=== PATIENT | male | born 1975 | race Two or more races ===

== ENCOUNTER 2023-03-10 14:42 | Outpatient (REF) | payer OTHER, SELFPAY ==
[2023-03-10 18:37] LABS: Influenza A PCR NEGATIVE (Negative); Influenza B PCR NEGATIVE (Negative); Resp Syncy Virus RNA Qual PCR NEGATIVE (Negative); SARS COV2 PCR INHOUSE NEGATIVE (Negative)
== END 2023-03-10 14:43 | disposition home or self-care (01) ==
LOC: HO.CHCLNP 14:42
PROVIDERS: Visit Provider Internal Medicine
DX: Z11.52 Encounter for screening for COVID-19 (principal); Z20.822 Contact with and (suspected) exposure to COVID-19; R05.9 Cough, unspecified
CPT/HCPCS: 0241U

== ENCOUNTER 2024-02-29 14:25 | Outpatient (REF) | payer OTHER, SELFPAY ==
[2024-02-29 17:47] LABS: Basophils Absolute Auto 0.1 X10*3/uL (0.0-0.2); Basophils Percent Auto 0.7 % (0-2); Eosinophils Absolute Auto 0.1 X10*3/uL (0.0-0.4); Hematocrit 44.5 % (42.0-52.0); Hemoglobin 14.7 g/dl (14.0-18.0); Imm Gran Abs Auto 0.09 X10*3/uL (0.00-0.03); Imm Gran Pct Auto 0.7 % (0.0-0.4); Lymphocytes Absolute Auto 5.1 X10*3/uL (1.2-4.9); Lymphocytes Percent Auto 41.2 % (20-40); MANUAL DIFF FLAG SCAN; Mean Corpuscular Hemoglobin 28.4 pg (27.0-33.0); Mean Corpuscular Volume 86.1 fL (80.0-98.0); Mean Platelet Volume 9.7 fL (9.4-12.4); Monocytes Absolute Auto 0.9 X10*3/uL (0.1-1.2); Monocytes Percent Auto 7.1 % (2-11); Neutrophils Absolute Auto 6.1 x10*3/uL (2.0-8.3); Neutrophils Percent Auto 49.3 % (45-73); Platelet Count 245 X10*3/uL (160-400); Red Blood Count 5.17 X10*6/uL (4.60-5.80); Red Cell Distribution Width 15.8 % (11.0-16.0); SCAN SMEAR FLAG 1; White Blood Count 12.5 X10*3/uL (4.8-10.8)
[2024-02-29 18:07] LABS: Appearance Urine Clear; Color Urine Yellow; Glucose Urine UA Negative (Negative); Leukocyte Esterase Urine Negative (Negative); Nitrite Urine Negative (Negative); PH 5.5 (5.0-9.0); Specific Gravity - Urine 1.025 (1.005-1.025); Urine Blood Negative (Negative); Urine Ketones Negative (Negative); Urine Protein Negative (Neg-Trace)
[2024-02-29 18:08] LABS: SLIDE REVIEW VERIFIED
[2024-02-29 18:09] LABS: Bacteria Urine None Seen (None Seen); Hyaline Casts Urine 0-2 /LPF (0-2); RBC Urine 0-2 /HPF (0-2); Squamous Epithelial Cell Urine 0-2 /HPF (0-2); WBC Urine 0-5 /HPF (0-5)
[2024-02-29 18:18] LABS: Prostate Specific Antigen Scr 0.43 ng/mL (<0.05-4.0); TSH reflex Free T4 1.28 uIU/mL (0.32-4.0)
[2024-02-29 18:36] LABS: Alanine Aminotransferase 26 U/L (0-40); Albumin Level 4.5 g/dL (3.5-5.0); Alkaline Phosphatase 122 U/L (39-117); Anion Gap 14 (12-20); Aspartate Amino Transferase 17 U/L (5-37); Bilirubin Total 0.3 mg/dL (0.0-1.0); Blood Urea Nitrogen 14 mg/dL (9-16); Calcium 9.6 mg/dL (8.4-10.2); Carbon Dioxide 27 mmol/L (22-29); Chloride 106 mmol/L (96-108); Cholesterol 177 mg/dL (<200); Estimated Glomerular Filt Rate > 60; Glucose Random 58 mg/dL (60-115); HDL Cholesterol 53 mg/dL (>40); LDL Cholesterol Calculated 97 mg/dL (<100); Potassium 3.8 mmol/L (3.3-5.1); Sodium 143 mmol/L (135-145); Total Protein 7.4 g/dL (6.5-8.0); Triglycerides 138 mg/dL (<150)
== END 2024-02-29 14:26 | disposition home or self-care (01) ==
LOC: HO.CHCLDS 14:25
PROVIDERS: Visit Provider Internal Medicine
DX: Z00.00 Encounter for general adult medical examination without abnormal findings (principal); Z13.6 Encounter for screening for cardiovascular disorders; Z12.5 Encounter for screening for malignant neoplasm of prostate; R35.0 Frequency of micturition
CPT/HCPCS: 36415; 80053; 80061; 81001; 84153; 84443; 85025

== ENCOUNTER 2024-03-08 10:25 | Outpatient (REF) | payer OTHER, SELFPAY | END 2024-03-08 10:26 | disposition home or self-care (01) | LOC: HO.HMGCX 10:25 | PROVIDERS: PCP Internal Medicine; Visit Provider Internal Medicine | DX: R74.8 Abnormal levels of other serum enzymes (principal) | CPT/HCPCS: 76700 ==

== ENCOUNTER 2024-11-04 11:56 | Outpatient (REF) | payer OTHER, SELFPAY ==
--- NOTE | ~2024-11-04 | XR_ITS ---
EXAMINATION: XR HAND, RIGHT CLINICAL INFORMATION: Right hand pain after a fall last week COMPARISON: None available. TECHNIQUE: PA, lateral, and oblique views of the right hand. FINDINGS: No fracture or acute deformity is identified. There are no erosions or osteophytes. Scapholunate interval is at the upper limits of normal. XR/XR hand RT min 3V IMPRESSION: No acute bony abnormality. Electronically signed by: Lio Alfaro MD 11/04/2024 01:28 PM EDT
--- NOTE | ~2024-11-04 | XR_ITS ---
EXAMINATION: XR SHOULDER, RIGHT CLINICAL INFORMATION: Right shoulder pain after fall last week COMPARISON: None available. TECHNIQUE: AP external rotation, Grashey, scapular Y views of the right shoulder. FINDINGS: AC joint is intact. There is no dislocation. There are no degenerative changes. No fracture is evident. XR/XR shoulder RT min 2V IMPRESSION: Unremarkable right shoulder x-rays Electronically signed by: Lio Alfaro MD 11/04/2024 01:29 PM EDT
--- OUTSIDE RECORDS SUMMARY | 2024-11-04 13:33 | XMS_ITS ---
Author Name [facility] Organization Unknown History of Medication Use Medication Directions Dispensed Refills Start Date End Date Stat Pepcid 20 mg tablet Take 1 tablet twice a day by oral route as needed. 03/10/2023 active acetaminophen ER 650 mg tablet,extended release TAKE 1 TABLET BY MOUTH EVERY 8 HOURS NEEDED FOR PAIN FOR UP TO 30 DAYS. active albuterol sulfate HFA 90 mcg/actuation aerosol inhaler INHALE 2 PUFFS EVERY 4 (FOUR) HOURS IF NEEDED FOR WHEEZING OR SHORTNESS OF BREATH. active gabapentin 100 mg capsule TAKE 1 CAPSULE BY MOUTH AT BEDTIME FOR 30 DOSES. active gabapentin 300 mg capsule Take 1 capsule by oral route. active ibuprofen 800 mg tablet Take 1 tablet twice a day by oral route with meal(s). active nortriptyline 10 mg capsule TAKE 1 CAPSULE BY MOUTH EVERY DAY active pregabalin 25 mg capsule Take 1 capsule 3 times a day by oral route. active Problems Problem Status Onset Date Problem Type Date of Resoluti on Source Depressive disorder active 2024-04-[address] [facility] [facility] Anxiety active 2024-04-19 [facility] [facility] Rupture of ulnar collateral ligament of thumb active 2024-04-19 Problem[facility] Fibromyalgia active 2024-04-[address] [facility] Migraine active 2024-04-19 ProblemAct [facility] Complex regional pain syndrome type I of right upper limb active 2024-04-22 ProblemAct [facility] Encounters Encounter Type Encounter Reason Primary Diagnosis Location Date [facility] 05/17/2024 Care Team Organization Name Specialty Phone Email Start Date End [facility] 2024
== END 2024-11-04 11:57 | disposition home or self-care (01) ==
LOC: HO.HHCX 11:56
PROVIDERS: Visit Provider Internal Medicine Geriatric Medicine
DX: M79.641 Pain in right hand (principal); M25.511 Pain in right shoulder
CPT/HCPCS: 73030; 73130

== ENCOUNTER → 2024-11-04 11:57 | Outpatient (BNV) | payer OTHER, SELFPAY | PROVIDERS: Visit Provider Radiology Diagnostic Radiology | DX: M25.511 Pain in right shoulder (principal); M79.641 Pain in right hand | CPT/HCPCS: 73030; 73130 ==

== ENCOUNTER 2024-11-29 10:17 | Outpatient (REF) | payer OTHER, SELFPAY ==
--- OUTSIDE RECORDS SUMMARY | 2024-11-29 10:37 | XMS_ITS ---
Author Name [facility] Organization Unknown History of Medication Use Medication Directions Dispensed Refills Start Date End Date Stat us Pepcid 20 mg tablet Take 1 tablet [...] times a day by oral route. active Allergies Allergen Reaction Severity Comment Documented Date Source Statu s DOG DANDER [facility] Problems Problem Status Onset Date Problem Type [...] Encounter Reason Primary Diagnosis Location Date [facility] 05/17/2024 Care Team Organization Name Specialty Phone Email Start Date End [facility] 2024
--- OUTSIDE RECORDS SUMMARY | 2024-11-29 10:37 | XMS_ITS | Clinical Summary ---
Author Organization [facility] Address [address] [place] [phone] Phone Care Team Providers Care Center [facility] Name Role Phone Grupo Broderick MD Primary Care Provider [phone] Allergies Active Allergy Reactions Criticality Noted Date Comments Dog Epithelium Allergenic Extract 03/10/2023 Other reaction(s): HIVES Shellfish Derived 04/09/2023 Seafood Other Reaction(s): Hives/Urticaria Medications ibuprofen (ADVIL,MOTRIN) 800 mg tablet Take 1 tablet (800 mg total) by mouth 2 (two) times a day with meals. Active sertraline (ZOLOFT) 50 mg tablet Take 1 tablet (50 mg total) by mouth. 12/02/2021 Active pregabalin (LYRICA) 75 mg capsule Take 1 capsule (75 mg total) by mouth 2 (two) times a day. 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 [address] [phone] Juliette Miranda MD 10/01/[address] [facility] [address] [phone] Kym Sykes 09/27/2024 9:30 AM EDT Office Visit Orthopedic Surgery [facility] [address] [phone] Juliette Miranda MD Complex regional pain syndrome type 1 of right upper extremity (Primary Dx); Sprain of ulnar collateral ligament of metacarpophalangeal (MCP) joint of right thumb, sequela 09/23/[address] [facility] [address] [phone] Kym Sykes 09/17/[address] 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 Stroke (CMS/HCC V24, CMS/HCC V28) TIA over 10yrs ago Seizures ([facility]/HCC V24, [facility] V28) hx of due to nortryptinine small shaking of exeremities Joint pain Arthritis Social History Tobacco Use Types Packs/Day Years Used Date Smoking Tobacco: Some Days Smokeless Tobacco: Never Alcohol Use Standard Drinks/Week Comments Not Currently 0 (1 standard drink = 0.6 oz pur e alcohol) Sex and Gender Information Value Date Recorded Sex Assigned at Male 06/18/2024 9:46 AM EST Legal Sex Male 9:08 PM EST Gender Identity Male 06/18/2024 9:46 AM EST Sexual Orientation Straight 06/18/2024 9: 46 AM EST Obstetrics History Last Filed Vital Signs Vital Sign Reading Time Taken Comments Blood Pressure 120/94 09/27/2024 9:41 AM EDT Pulse 108 09/27/2024 9:41 AM EDT Temperature 36.9 C (98.5 F) 08/13/2024 8:20 AM EDT Respiratory Rate 18 08/13/2024 8:20 AM EDT Oxygen Saturation 98% 08/13/2024 8:20 AM EDT Inhaled Oxygen Concentration - - Weight 91.6 kg (202 lb) 09/27/2024 9:41 AM EDT Height 167.6 cm (5' 6 ) 09/27/2024 9:41 AM EDT Body Mass Index 32.6 09/27/2024 9:41 AM EDT Plan of Treatment Upcoming Encounters Date Type Department Care Team ([facility] st Contact Info) Description 12/10/2024 9:30 AM EDT Office Visit Orthopedic Surgery - [place] [address] [phone] Juliette Miranda MD [address] [phone] Health Maintenance Due Date Last Done Comments Hepatitis B Vaccines (1 of 3 - 19+ 3-dose series) 1996 DTaP,Tdap,and Td Vaccines (2 - Td or Tdap) 04/05/2016 04/05/2006 HIV Screening 2023 Hepatitis C Screening 2023 Social Influencers of Health Screening 2023 COVID-19 Vaccine (1 - 2023-2 5 season) 2024 Depression Screening 05/15/2024 Influenza Vaccine (#1) 2025 02/29/2024 Colorectal Cancer Screening: FIT-DNA (Cologuard) 03/08/2027 03/08/2024 Cholesterol Screening (Lipid Panel) 02/28/2029 02/29/2024 Pneumococcal Vaccine: Pediat rics (0 to 5 Years) and At-Risk Patients (6 to 49 Years) Completed 02/29/2024 HIB Vaccines Aged Out No longer eligi ble based on patient's age to complete this topic HPV Vaccines Aged Out No longer eligi ble based on patient's age to complete this topic Hepatitis A Vaccines Aged Out No long er eligible based on patient's age to complete this topic IPV Vaccines Aged Out No longer eligi ble based on patient's age to complete this topic MMR Vaccines Aged Out No longer eligi ble based on patient's age to complete this topic Meningococcal ACWY Vaccine Aged Out N o longer eligible based on patient's age to complete this topic Meningococcal B Vaccine Aged Out No l onger eligible based on patient's age to complete this topic RSV Immunization Patients Un kemar 20 months Aged Out No longer eligible b ased on patient's age to complete this topic Varicella Vaccines Aged Out No longer eligible based on patient's age to complete this topic Goals Goal Patient Goal Type Associated Problems Recent Progress Patient-Stated? 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 Patient demo decreased spasms/ twitching Patient reports and demo limited time to be able to hold/ functionally use a marker /pen Demo use of mouse and keyboard ( limited time) 06/25/2024 Patient has regressed after receiving 2 nerve blocks Reports increased pain and demo intermittent twitching right thumb during functional tasks of any kind integrating right hand pain General Worsening( 8:51 AM EST) No Gijzen, Haylie P, OTR/L Note: For patient to have less than 3 :10 pain in his right hand 2023 Goal not met. Patient continues to report intermittent sharp pains when using his right hand > 3:10 pain 06/25/2024 Patient continues with >3 : 10 pain limiting all functional use of his right hand ROM General Worsening( 8:49 AM EST) No Haylie Parikh, OTR/L Note: Patient will have full ROM in his right wrist ( ROM right wrist = ROM left wrist) PROM right wrist = PROM left wrist HOWEVER AROM right wrist EXT. 60 degrees/ Flex. 70 MS wrist 3-/5 05/20/2024 Increased wrist Extension 70 degrees. 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+/5 06/25/2024 Decreased AROM in right wrist EXT/ Flexion = 55 degrees strenght General Worsening( 8:45 AM EST) No Haylie Parikh P, OTR/L Note: Patient will have more than 35 lbs gross grasp in his right hand Patient will have increased 2 point affirmative action officer of 10 lbs, 3 jaw radha of 10 lbs, and lateral affirmative action officer of 10 lbs, 04/03/2024: grossgrasp = 25 lbs 2 point affirmative action officer= 3 lbs, 3 jaw radha = 4 lbs and lateral affirmative action officer =5 lbs 05/01/2024 grossgrasp= 28 lbs 2 point pinch = 4 lbs , 3 jaw radha= 4 lbs and lateral affirmative action officer = 5 lbs 05/20/2024 gross grasp =30 lbs. 2 point pinch= 4 lbs 3 jaw radha =5 lbs and lateral pinch =9 lbs 06/25/2024 gross grasp = 20 lbs 2 point pinch = 2 3 jaw radha = 1 lbs and lateral pinch =1 lbs <enter goal here> General Yes Haylie Parikh, OTR/L work re entry General Worsening( 8:42 AM EST) No Gijzen, Haylie P, OTR/L Note: Patient will be able to use a his right hand to draw on I pad ; for limited time . 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 Progressing; able to use thick handled brush for short periods of time 06/25/2024 Patient has been regressing after undergoing nerve blocks at pain clinic He has not been integrating his thumb during functional tasks ( keeps thumb against his index) 05/20/2024 Patient Slowly progressing; demo holding and using marker with right hand with interruptions ( 2nd to pain ) Procedures Procedure Name Priority Date/Time Associated Diagnosis Comments XR FINGERS 2+ VIEWS BILATERAL Routine 10/21/2024 2:26 PM EDT Post-operative state from Last 3 Months Results * XR Fingers 2+ Views bilat (10/21/2024 2:26 PM EDT) Anatomical Region Laterality Modality Upper Extremities, Fingers Bilateral Compu leigh Radiography Narrative 10/21/2024 5:25 PM EDT AP and lateral of both thumbs [id number] were obtained on 10/21/2024. There are no obvious fractures, lytic lesions, or unusual calcifications. On the lateral views the right thumb is flexed and the MP joint appears subluxed volarly with more uncovering of the metacarpal head along with volar displacement of the sesamoids. Both basal joints are intact on the lateral views. while it is the lateral image of the MP joint is slightly oblique the PIP joint which can indicate some rotation. There is an image from 08/16/2024 that show the right thumb and hand. There is similar volar displacement of the sesamoids as well as ulnar deviation and flexion of the MP joint. There is an image of the right thumb dated 04/09/2023 which showed the MP joint to be more congruent on the lateral view . Impression: Subtle volar subluxation of the MP joint of the right thumb relative to the left and relative to prior imaging from 2022. us Juliette Miranda MD IMG XR PROCEDURES Final Resul t from Last 3 Months Insurance GENERIC GENERIC GENERIC Care Teams Center [facility] Reamer Relationship Specialty Start Date End Date Grupo Broderick MD [address] [place] [id number] PCP - General Internal Medicine 08/12/24
--- OUTSIDE RECORDS SUMMARY | 2024-11-29 10:37 | XMS_ITS | Data Portability ---
Author Organization [place] - [employer] [id number] Address [address] [place] [address] Care Team Providers Care Rn Geriatric Name Role Phone MEG FORD Referring Provider RUBEN CURRIE Admission Liaison Assessment Encounter Date Assessment Date Assessment LastModified by Organization Details LastModified Time 04/22/2024 04/22/2024 - [facility] criteria: Symptoms: Sensory--+allo dynia Vasomotor--+te mperature changes in right hand Sudomotor/silvio a--+edema, +increased sweating Motor/Trophic- -+weakness/roth ited ROM Signs: Sensory--+allo dynia Vasomotor--+co lisandro changes in right hand Sudomotor/silvio a--+slight edema Motor/Trophic- -+weakness/roth ited ROM in right hand -at this point, patient does meet [place] criteria for CPRS of RUE -will plan to change gabapentin 300mg BID-->lyrica 25mg TID, as he reports some drowsiness with gabapentin and is unable to take it TID -will plan for right-sided stellate ganglion block to help with his CRPS symptoms, discussed repeating it up to 3x initially -recommended to continue PT/HEP -f/up in 1 month - 45 minutes was used for chart review, interviewing/e xamining, and counseling the patient during today's visit, and patient denies having any other further questions/conc erns [email or web address] Not available 04/22/2024 09:03:36 05/21/2024 05/21/2024 - Christ criteria: Symptoms: Sensory--+allo dynia Vasomotor--+te mperature changes in right hand Sudomotor/silvio a--+edema, +increased sweating Motor/Trophic- -+weakness/roth ited ROM Signs: Sensory--+allo dynia Vasomotor--+co lisandro changes in right hand Sudomotor/silvio a--+slight edema Motor/Trophic- -+weakness/roth ited ROM in right hand -at this point, patient does meet [place] criteria for CPRS of RUE -will plan to stop lyrica at this point, as he still reports being drowsy with the medication despite only taking 25mg during the day; of note, patient is currently taking sertraline for anxiety/depres charity, which is being prescribed to him by his PCP, advise patient to talk with his PCP to see if the sertraline can be switched to cymbalta as that would also have some neuropathic pain control qualities in addition to helping with anxiety/depres charity -will plan for repeat right-sided stellate ganglion block to help with his CRPS symptoms--the first one on 04/30/24 did help with his pain and ROM, however only lasted for a few days, the duration of which can be expected after only the first injection--dis cussed repeating it up to 3x initially -recommended to continue PT/HEP -f/up in 1 month - 25 minutes was used for chart review, interviewing/e xamining, and counseling the patient during today's visit, and patient denies having any other further questions/conc erns [email or web address] Not available 05/21/2024 13:03:47 09/17/2024 [facility]oms: Sensory--+allo dynia Vasomotor--+te mperature changes in right hand Sudomotor/silvio a--+edema, +increased sweating Motor/Trophic- -+weakness/roth ited ROM Signs: Sensory--+allo dynia Vasomotor--+co lisandro changes in right hand Sudomotor/silvio a--+slight edema Motor/Trophic- -+weakness/roth ited ROM in right hand -at this point, patient does meet [place] criteria for CPRS of RUE; however has gone through right-sided stellate ganglion block x3 with minimal improvement; have also tried multiple neuropathic medications (gabapentin, lyrica, nortriptyline) all causing some side effects or possibly interacting with his current medication regimen; had long discussion with patient that at this point, I unfortunately do not have anything else to offer in terms of further treatment for his CRPS -did advise patient to reach out to his case adjustor/nurse manager drug safety about getting another opinion from a pain management physician for further management/brian atment options -recommended to continue PT/HEP -f/up PRN -25 minutes was used for chart review, interviewing/e xamining, and counseling the patient during today's visit, and patient denies having any other further questions/conc erns Not available 09/17/2024 11:47:06 Plan of Treatment Reminders Order Date Submit Date Provider Last Modified By Organization Details Last Modified Time Details Appointments None recorded. Lab None recorded. Referral None recorded. Procedures None recorded. Surgeries None recorded. Imaging None recorded. Medication Orders Lyrica 25 mg capsule [id number] [facility]/Pharmacy #[id number], [address] [place], [address], 13:16:10 Lyrica 25 mg capsule ILA [facility]/Pharmacy #[id number], [address] [place], [address], 4 13:15:45 Patient TargetsNo targets recorded. Patient InstructionsNo instructions recorded. Reason for Referral None Reported. Results Created Date Observation Date Name Description Value Unit Range Abnormal Flag Note LastModifiedBy Organization Detail LastModifiedTime 04/30/20 24 04/30/2024 proce dures No observ ation record ed. [email or web address] [address], [address], 05/03/2024 16:13:57 06/04/19 25 06/04/2024 proce dures No observ ation record ed. [email or web address] [address], [address], 06/04/2024 10:55:26 Result Notes None recorded. Problems Name Problem SNOMED Code Status Onset Date Resolution Date Notes Provider Name and Address Organization Details Recorded Time Fibromyalgi a 499861886 Active 2023 Delia Blake [facility] 4 14:47:05 Migraine 52568001 Active 2023 Delia Blake [facility] 4 14:47:18 Anxiety 20371811 Active 2023 Delia Blake [facility] 4 14:47:24 Depressive disorder 26231851 Active 2023 Delia Blake [facility] 4 14:47:31 Rupture of ulnar collateral ligament of thumb 193633740 Active 2023 RT Delia Blake [facility] 4 14:48:04 Complex regional pain syndrome type I of right upper limb 9113287376273 03 Active 2023 Zane Harrington MD [facility] 4 08:58:17 Problem Notes None recorded. Procedures Surgical History Date Name Laterality Status Provider Name and Address Organization Details Recorded Time 11/29/19 24 ligament reconstruction completed Delia Blake [facility] 04/19/2024 15:03:23 Imaging Results None recorded. Procedure Notes None recorded. Medical Equipment None Reported. Allergies Allergen ID Allergen Name Allergen Category Reaction Reaction Severity Criticality Documentation Date Start Date Code Code System Note Provider Name and Address Organization Details Recorded Time 2145 Canis lupus familiari s extract environme nt Not available Not available Not available 04/19/2024 60463 4 [facility] 14:43[facility]13 2146 shellfish derived food,medi cation Not available Not available Not available 04/19/2024 95387 UNK Delia Blake [facility] 4 14:43:22 Medications Name Sig Start Date Stop Date Status Note LastModified by Organization Details LastModified Time cyclobenzapri ne 10 mg tablet TAKE 1 TABLET BY MOUTH 3 TIMES A DAY FOR 10 DAYS. active Not Available Not Available No t Available ibuprofen 800 mg tablet Take 1 tablet twice a day by oral route with meal(s). active Not Available Not Available No t Available prednisone 20 mg tablet TAKE 2 TABLETS BY MOUTH IN THE MORNING FOR 5 DAYS active Not Available Not Available N ot Available acetaminophen ER 650 mg tablet,extend ed release TAKE 1 TABLET BY MOUTH EVERY 8 HOURS NEEDED FOR PAIN FOR UP TO 30 DAYS. active Not Available Not Available No t Available nortriptyline 10 mg capsule TAKE 1 CAPSULE BY MOUTH EVERY DAY active Not Available Not Available No t Available gabapentin 300 mg capsule Take 1 capsule by oral route. active Not Available Not Available No t Available gabapentin 100 mg capsule TAKE 1 CAPSULE BY MOUTH AT BEDTIME FOR 30 DOSES. active Not Available Not Available No t Available ibuprofen 600 mg tablet TAKE 1 TABLET BY MOUTH 3 TIMES A DAY WITH MEALS MAX 2400 MG DAILY active Not Available Not Available No t Available Pepcid 20 mg tablet Take 1 tablet twice a day by oral route as needed. 2022 active Not Available Not Available Not Avai lable methylprednis olone 4 mg tablets in a dose pack TAKE 6 TABLETS ON DAY 1 DIRECTED ON PACKAGE AND DECREASE BY 1 TAB EACH DAY FOR A TOTAL OF 6 DAYS active Not Available Not Available No t Available albuterol sulfate HFA 90 mcg/actuation aerosol inhaler INHALE 2 PUFFS EVERY 4 (FOUR) HOURS IF NEEDED FOR WHEEZING OR SHORTNESS OF BREATH. active Not Available Not Available N ot Available amoxicillin 875 mg-potassium clavulanate 125 mg tablet TAKE 1 TABLET BY MOUTH TWICE A DAY active Not Available Not Available No t Available oxycodone 5 mg tablet TAKE 1 TO 2 TABLETS BY MOUTH EVERY 4 TO 6 HOURS NEEDED FOR SEVERE PAIN SCALE 7-10 active Not Available Not Available No t Available Pain Relief Extra Strength (acetaminophe n) 500 mg tablet TAKE 2 TABLETS BY MOUTH EVERY 8 HOURS NEEDED FOR MODERATE PAIN SCALE 4-6 active Not Available Not Available No t Available pregabalin 25 mg capsule Take 1 capsule 3 times a day by oral route. active Not Available Not Available No t Available Magdi Friend [facility] spacer USE 1 EACH EVERY 4 (FOUR) HOURS IF NEEDED (ASTHMA). active Not Available Not Available No t Available Vitals Date Recorded Body height Body mass index (BMI) Body weight Heart rate Oxygen saturation Oxygen saturation in Arterial blood by Pulse oximetry Body temperature Systolic And Diastolic Provider Name and Address Organization Details Last Updated DateTime 4 165.1 cm 30.8 kg/m2 46840.5 9 g 103 /min 93 % 93 % 98 [degF] 117/90 mm[Hg] Delia Blake [facility] 4 08:16:12 Social History None recorded. Functional Status None recorded. Mental Status None recorded. Family History Nothing Reported. Medical History Condition Response Diabetes N Allergies/Hayfever Y Anxiety Y Hernia N Head Trauma/Injury N Acid Reflux (GERD) N Migraines Y Depression Y Asthma N Substance Use N Back Injury N Heart Attack ([place]) N Ulcers N Hypertension N Past Encounters Encounter ID Performer Location Encounter Start Date Encounter Closed Date Diagnosis/Indication Diagnosis SNOMED-CT Code Diagnosis ICD10 Code Diagnosis Note [id number] Zane Harrington MD [id number] [address] [place] [address] 04/22/2024 08:09:57 04/22/2024 09:12:07 Complex regional pain syndrome type I of right upper limb 6869887644 84715 G90.511 [id number] Zane Harrington MD [id number] [facility] [address] [place] [address] 05/21/2024 07:45:15 05/21/2024 13:08:23 Complex regional pain syndrome type I of right upper limb 3858161485 77751 G90.511 [id number] Zane Harrington MD [id number] [facility] [address] [place] [address] 09/17/2024 07:59:14 09/17/2024 11:58:31 Complex regional pain syndrome type I of right upper limb 4912416312 42590 G90.511 Health Concerns Section Related Observation LastModified by Organization Detai ls LastModified Time None Recorded Concern Status LastModified by Organization Details LastModified Time None Recorded Advance Directives Directive None Recorded Payers Insurance Date Sequence Insurance Name Policy Number Policy Boyd Covered Member ID Boyd Member ID Guarantor Name 09/25/2024 [facility] [employer] Abiel Valentine Notes Date Note Type Note Provider Name and Address Organization Details Recorded Time 04/22/2024 text/html Abiel Valentine is a pleasant 48 year old male, who has h/o fibromyalgia who presents with right-sided hand/lower arm pain for ~5 months. He initially suffered a ruptured ulnar collateral ligament of his right thumb when he was at work opening a fire door, and subsequently underwent surgery for reconstruction of it on 11/13/2023, and has been dealing with pain in that area since then. The pain is constant and is described as sharp and burning in character. The current pain intensity is 8/10 at rest, increasing to 10/10 with activity. The pain increases with movement in his right hand, he is also experiencing significantly allodynia and hyperalgesia in that area. Pain is slightly better at rest. He also reports having decreased ROM in his right hand/arm, as well as noticing increased sweating in his right hand. He also reports noticing that his right hand is colder than his left. Denies any color changes in his right hand. Also notes some swelling in his right hand. Patient denies any radicular pain to the remainder of his RUE, he states that the pain ends at the level of his elbow. He does endorse numbness/tingling and weakness in his right lower arm/hand as well. He reports that performing activities of daily living is somewhat difficult, as he has learned to do a lot of activities using his left arm now. Patient has tried: at least 6 weeks of PT/HEP within the past 6 months Current pain medications: gabapentin 300mg BID--does make patient slightly drowsy when taking it TID Previous Medications and doses tried/effect: none Previous Nerve Block or Injection: none I personally reviewed prior radiological services. I also obtained relevant old records and reviewed lab data. Zane Harrington MD [facility], [place] [facility] 04/23/2024 09:17:08 05/21/2024 text/html Abiel Valentine is a pleasant 48 year old male, who has h/o fibromyalgia who presents with right-sided hand/lower arm pain for ~5 months. He initially suffered a ruptured ulnar collateral ligament of his right thumb when he was at work opening a fire door, and subsequently underwent surgery for reconstruction of it on 11/13/2023, and has been dealing with pain in that area since then. He also reports having decreased ROM in his right hand/arm, as well as noticing increased sweating in his right hand. He also reports noticing that his right hand is colder than his left. Denies any color changes in his right hand. Also notes some swelling in his right hand. Patient denies any radicular pain to the remainder of his RUE, he states that the pain ends at the level of his elbow. He does endorse numbness/tingling and weakness in his right lower arm/hand as well. He reports that performing activities of daily living is somewhat difficult, as he has learned to do a lot of activities using his left arm now. Patient has tried: at least 6 weeks of PT/HEP within the past 6 months Current pain medications: gabapentin 300mg BID--does make patient slightly drowsy when taking it TID Previous Medications and doses tried/effect: none Previous Nerve Block or Injection: right-sided stellate ganglion block (04/30/24): >50% relief for a few days I personally reviewed prior radiological services. I also obtained relevant old records and reviewed lab data. 05/21/24: Spoke with patient over telephone. He reports that he did get a few days of pain relief those are notable. However he does state that it only lasted for a few days and he was disappointed that it did not last for longer. Did advise patient that after the first injection that the pain relief may not last very long, which is why we would repeat a stellate ganglion block up to 3 times initially within a relatively short time interval. He does also report a coincidental migraine headache that started 4-5 days after the injection and went away a few days later. He reports taking the Lyrica during the day every day. He did find that he was getting drowsy during the day despite being on only 25 mg once daily. Advised patient that he should to stop taking the Lyrica at this point. Of note patient is on sertraline for anxiety/depression, which is prescribed by his primary care doctor. He reports that currently the pain in his right hand is back to baseline. He does find it that the range of motion in his right hand is improved from previously though. He also reports that with his increased range of motion that he is noticing more pain when he moves it more than he was previously. Zane Harrington MD [facility], [place] [facility] 05/21/2024 13:04:02 09/17/2024 text/html Abiel Valentine is a pleasant 49 year old male, who has h/o fibromyalgia who presents with right-sided hand/lower arm pain for ~5 months. He initially suffered a ruptured ulnar collateral ligament of his right thumb when he was at work opening a fire door, and subsequently underwent surgery for reconstruction of it on 11/13/2023, and has been dealing with pain in that area since then. He also reports having decreased ROM in his right hand/arm, as well as noticing increased sweating in his right hand. He also reports noticing that his right hand is colder than his left. Denies any color changes in his right hand. Also notes some swelling in his right hand. Patient denies any radicular pain to the remainder of his RUE, he states that the pain ends at the level of his elbow. He does endorse numbness/tingling and weakness in his right lower arm/hand as well. He reports that performing activities of daily living is somewhat difficult, as he has learned to do a lot of activities using his left arm now. Patient has tried: at least 6 weeks of PT/HEP within the past 6 months Current pain medications: gabapentin 300mg BID--does make patient slightly drowsy when taking it TID Previous Medications and doses tried/effect: gabapentin--drowsine ss, lyrica--drowsiness, nortriptyline--may be interacting with his sertraline (sweating, tachycardia) Previous Nerve Block or Injection: right-sided stellate ganglion block (04/30/24): >50% relief for a few daysright-sided stellate ganglion block (06/04/24): slight relief for a few daysright-sided stellate ganglion block (08/13/24): slight relief for a few days I personally reviewed prior radiological services. I also obtained relevant old records and reviewed lab data. 05/21/24: Spoke with patient over telephone. He reports that he did get a few days of pain relief those are notable. However he does state that it only lasted for a few days and he was disappointed that it did not last for longer. Did advise patient that after the first injection that the pain relief may not last very long, which is why we would repeat a stellate ganglion block up to 3 times initially within a relatively short time interval. He does also report a coincidental migraine headache that started 4-5 days after the injection and went away a few days later. He reports taking the Lyrica during the day every day. He did find that he was getting drowsy during the day despite being on only 25 mg once daily. Advised patient that he should to stop taking the Lyrica at this point. Of note patient is on sertraline for anxiety/depression, which is prescribed by his primary care doctor. He reports that currently the pain in his right hand is back to baseline. He does find it that the range of motion in his right hand is improved from previously though. He also reports that with his increased range of motion that he is noticing more pain when he moves it more than he was previously. 09/17/24: Spoke with patient over telephone. He reports getting a few days of slight improvement in his pain in his right thumb/hand after his most recent right-sided stellate ganglion block on 08/13/2024. Currently though he does report that the pain is back to his usual level. He does notice that it is also starting to affect his index finger. He did have an appointment with an independent phlebotomist medical lab assistant from his Worker's Comp case. I did speak with Tete (nurse case worker--[phone]), and Annita (adjustor--[phone]) regarding Mr. Valentine's situation. They did report that the independent phlebotomist medical lab assistant does not believe the patient has CRPS. Patient reports that his pain is a 9 out of 10. He continues to do his home exercises. He was started on nortriptyline approximately 1 month ago, however he does report that he has noticed some tachycardia based on readings from his watch. He has also noted that he sweats a lot easier now with activity. So I did advise the patient that he needs to stop taking the nortriptyline, and if his symptoms were to worsen he needs to go to the emergency department for immediate evaluation. Zane Harrington MD [facility] 09/17/2024 11:47:35
[2024-11-29 13:49] LABS: MANUAL DIFF FLAG NO
[2024-11-29 14:05] LABS: Hematocrit 43.1 % (42.0-52.0); Hemoglobin 14.1 g/dl (14.0-18.0); Imm Gran Abs Auto 0.08 X10*3/uL (0.00-0.03); Imm Gran Pct Auto 0.9 % (0.0-0.4); Lymphocytes Absolute Auto 3.5 X10*3/uL (1.2-4.9); Mean Corpuscular HGB Conc 32.7 g/dl (31.0-36.0); Mean Corpuscular Hemoglobin 28.4 pg (27.0-33.0); Mean Corpuscular Volume 86.9 fL (80.0-98.0); NRBC Abs Auto 0.000 X10*3/uL (0.0-0.012); NRBC Pct Auto 0.0 /100WBC (0.0-0.2); Platelet Count 243 X10*3/uL (160-400); Red Blood Count 4.96 X10*6/uL (4.60-5.80); White Blood Count 8.9 X10*3/uL (4.8-10.8)
[2024-11-29 14:23] LABS: Alanine Aminotransferase 27 U/L (0-40); Albumin Level 4.4 g/dL (3.5-5.0); Alkaline Phosphatase 138 U/L (39-117); Anion Gap 11 (12-20); Aspartate Amino Transferase 25 U/L (5-37); Blood Urea Nitrogen 13 mg/dL (9-16); Calcium 8.8 mg/dL (8.4-10.2); Carbon Dioxide 24 mmol/L (22-29); Chloride 110 mmol/L (96-108); Estimated Glomerular Filt Rate > 60; Potassium 4.1 mmol/L (3.3-5.1); Sodium 141 mmol/L (135-145); Total Protein 7.0 g/dL (6.5-8.0)
== END 2024-11-29 10:18 | disposition home or self-care (01) ==
LOC: HO.CHCLDS 10:17
PROVIDERS: Visit Provider Student in an Organized Health Care Education/Training Program
DX: R55 Syncope and collapse (principal); R00.2 Palpitations
CPT/HCPCS: 36415; 80053; 84443; 85025

== ENCOUNTER → 2024-12-19 12:49 | Outpatient (REF) | payer OTHER, SELFPAY ==
--- NOTE | 2024-12-19 12:53 | HM_ITS ---
* Total monitoring time 2 days. * Underlying rhythm is sinus with an average rate of 94/Min. About 35% of the time, rate > 100/Min. * Rare supraventricular ectopy. * Rare ventricular ectopy. * No significant pauses or high-grade AV blocks. * Patient marker associated with sinus rhythm. * Dizziness mentioned in diary but date not specified. MTDD
== END ==
LOC: HO.CARD 12:49
PROVIDERS: PCP Student in an Organized Health Care Education/Training Program; Visit Provider Student in an Organized Health Care Education/Training Program
DX: R00.2 Palpitations (principal); R55 Syncope and collapse
CPT/HCPCS: 93225

== ENCOUNTER → 2024-12-19 12:53 | Outpatient (BNV) | payer OTHER, SELFPAY | PROVIDERS: PCP Student in an Organized Health Care Education/Training Program; Visit Provider Internal Medicine | DX: I49.49 Other premature depolarization (principal); I49.3 Ventricular premature depolarization | CPT/HCPCS: 93227 ==

== ENCOUNTER 2025-01-22 07:56 | Outpatient (AMB) | payer OTHER, SELFPAY ==
--- NOTE | 2025-01-22 07:59 | MHC.OFFVIS ---
Vital Signs 01/22/25 08:02 Height 5 ft 6 in Weight 200 lb BMI 32.3 BP 130/88 Blood Pressure Location Rt brachial Position Sitting Respiration 16 Pulse 78 Pulse Oximetry (%) 97 Intake Visit Reasons: ENP: Syncope, unspecified syncope type, Encounter to establish care Allergies SEAFOOD Allergy (Unknown, Uncoded 01/22/25 08:01) UNKNOWN seafood and shellfish Adverse Reaction (Severe, Uncoded 01/22/25 08:01) hives, SOB, facial swelling HPI Comments Details: The patient is a 49-year-old male presenting with syncope. The episodes began after starting nortriptyline for pain management, with symptoms including vision changes, hearing loss, and loss of consciousness followed by tremulousness upon regaining consciousness. He also notes a bilateral headache described as a pressure sensation and accompanied by dizziness, light sensitivity, and nausea. He also feels very fatigued and brain fogged. Despite discontinuing nortriptyline, the symptoms have persisted and worsened over time. These episodes are occurring most commonly in the morning time. The patient also reports a history of chronic migraines, which are distinct from the headaches experienced after syncope episodes. The migraines are typically one-sided and sometimes accompanied by auras. The patient has a past medical history of viral meningitis in the , which required hospitalization and quarantine. Sinus tachycardia was identified through an EKG, with the patient experiencing a consistently elevated heart rate. He denies history of , stroke, or brain bleeds. He does have a history of previously low blood glucose levels. During episodes he denies loss of bladder, unilateral shaking or abnormal movements. He does not awaken confused or combative. He denies chest pain during episodes but has some related chest palpitations. Sleep: Does not sleep well. Sleeps 5-6 hours per night. Caffine: 2 cups coffee per day Tobacco: Smokes cigars once daily ETOH: Rare Substance use: Marijuana 1-2 grams per day [facility] Medical History (Updated 01/22/25 @ 09:07 by Zoila Low CNP) Syncope Review of Systems Const Details: Neurological: Reports syncope, vision changes, hearing loss, tremulousness, and chronic migraines. Denies hallucinations. - Cardiovascular: Reports palpitations. Denies chest pain. - Musculoskeletal: Reports chronic regional pain syndrome in the right wrist. - General: Reports weight gain since surgery. Physical Exam Vital Signs: Last Vital Signs Pulse 78 01/22/25 08:02 Resp 16 01/22/25 08:02 BP 130/88 01/22/25 08:02 Pulse Ox 97 01/22/25 08:02 BMI result Body Mass Index 32.3 Const General: cooperative, healthy appearing, comfortable and no acute distress Nutritional Appearance: well nourished Orientation/consciousness: patient oriented x3 Limitations: no limitations HEENT Head: Yes normal to inspection and Yes normocephalic Eyes General: appearance normal, both eyes and all related structures Visual Brown: normal visual brown by confrontation Alignment and Position: alignment normal Periorbital: periorbital findings normal Eyelids: Yes eyelids normal Conjunctivae: conjunctivae normal Sclerae: sclerae normal Direct Ophthalmoscopy: normal light reflex, no papilledema and fundi normal bilaterally Neck Neck: Yes normal visual inspection and Yes full ROM General: Yes no CVA tenderness Back/Spine/Pelvis Back: no CVA tenderness Cervical Spine: normal cervical lordosis Thoracic/Lumbar Spine: thoracic and lumbar spine normal to inspection Neuro General: patient oriented x3, tone normal and deep tendon reflexes 2+ bilaterally (Right wrist deferred d/t pain ) Cranial nerves: Yes CN's II-XII intact bilaterally and Yes Facial sensation intact/muscles of mastication intact Cognition (Neuro): normal cognition Gait exam (Neuro): Normal gait present Motor exam (neuro): 5/5 motor strength present throughout and Tremors during motor activity present (R>L upper extremity mild action tremor) bilateral upper extremity other (with activity ) Sensory Exam: double simultaneous stimulation for sensation normal Romberg Test: Negative Pupils: Normal pupillary reactivity/response: bilateral Psych Appearance: grossly normal Mental Status: mental status grossly normal Speech and movement: Normal speech and movement present and Clear speech present Affect: normal affect Attitude: cooperative Thought process: Normal thought process present Thought content: Normal thought content present Insight: Good insight present (Psych) Judgement: Good judgement present (Psych) Assessment & Plan Assessment & Plan (1) Encounter to establish care: Code(s): Z76.89 - Persons encountering health services in other specified circumstances (2) Loss of consciousness: Code(s): R40.20 - Unspecified coma Category: Medical (3) Shaking: Code(s): R25.1 - Tremor, unspecified Category: Medical (4) Tremor: Code(s): R25.1 - Tremor, unspecified Category: Medical (5) Migraine with aura and without status migrainosus, not intractable: Code(s): G43.109 - Migraine with aura, not intractable, without status migrainosus Category: Medical Plan The plan includes obtaining an EEG to evaluate for potential seizure activity, given the episodes of syncope with loss of awareness. Additionally, a brain MRI is recommended to rule out any structural changes contributing to the syncope. We discussed that this may be related to migraine. Alternatively there may be a psychogenic component. He does have an upcoming appointment with cardiology and we may consider referral to endocrinology to r/o fluctuations in BG levels that could be contributing. His TSH was normal. -MRI brain with and without contrast -EEG awake and asleep -Follow-up in 2 months -Keep cardiology appointment -Future considerations include referral to endocrinology Orders: Orders EEG awake and asleep Today R25.1 - Tremor, unspecified, R40.20 - Unspecified coma MR head/brain wo/w con Today R25.1 - Tremor, unspecified, R40.20 - Unspecified coma Coding Level of Care Code New Pt Level 4 (63419) Diagnoses Encounter to establish care Z76.89 Loss of consciousness R40.20 Shaking R25.1 Migraine with aura and without status migrainosus, not intractable G43.109
[2025-01-22 08:02] VITALS: BP 130/88; PULSE 78; RESP 16; O2SAT 97; BMI 32.3
--- OUTSIDE RECORDS SUMMARY | 2025-01-22 08:10 | XMS_ITS | Clinical Summary ---
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) 11/27/2024 Telephone Orthopedic Surgery [facility] [address] [facility] [address] [place] [address] Kym Sykes from Last 3 Months Surgical [...] of Chronic pain disorder 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, 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 Stroke (CMS/[facility] V24, CMS/[facility] V28) TIA over 10yrs ago Seizures (CMS/[facility] V24, CMS/[facility] V28) hx of due to nortryptinine small [...] Upcoming Encounters Date Type Department Care Team ([facility] st Contact Info) Description 01/28/2025 9:30 AM EDT Office Visit Orthopedic Surgery - [place] [address] [facility] [address] [place] [address] Juliette Miranda MD [address] [facility] [address] [place] [id number] Health Maintenance Due Date Last Done Comments Hepatitis B Vaccines (1 of 3 - 19+ 3-dose series) 1996 DTaP,Tdap,and Td Vaccines (2 - Td or Tdap) 04/05/2016 04/05/2006 HIV Screening 2023 Hepatitis C Screening 2023 Social Influencers of Health Screening 2023 Depression Screening 05/15/2024 COVID-19 Vaccine (1 - 2023-2 5 season) 2025 Influenza Vaccine (#1) 2025 02/29/2024 Colorectal Cancer [...] pain General Worsening( 8:51 AM EST) No Haylie Parikh P, OTR/L Note: For patient to have less than 3 :10 pain in his right hand 2023 Goal not met. Patient continues to report intermittent sharp pains when using his right hand > 3:10 pain 06/25/2024 Patient continues with >3 : 10 pain limiting all functional use of his right hand ROM General Worsening( 8:49 AM EST) No Haylie Parikh P, OTR/L Note: Patient will have full ROM in his right wrist ( ROM right wrist = ROM left wrist) PROM right wrist = PROM left wrist HOWEVER AROM right wrist EXT. 60 degrees/ Flex. 70 MS wrist 3-/5 05/20/2024 Increased wrist Extension 70 degrees. Wrist Ext left = wrist EXT right Case Picker strength wrist 3+/5 06/25/2024 Decreased AROM in right wrist EXT/ Flexion = 55 degrees strenght General Worsening( 8:45 AM EST) No Haylie Parikh P, OTR/L Note: Patient will have more than 35 lbs gross grasp in his right hand Patient will have increased 2 point lean six sigma senior specialist of 10 lbs, 3 jaw radha of 10 lbs, and lateral lean six sigma senior specialist of 10 lbs, 04/03/2024: grossgrasp = 25 lbs 2 point lean six sigma senior specialist= 3 lbs, 3 jaw radha = 4 lbs and lateral lean [employer] sigma senior specialist =5 lbs 05/01/2024 grossgrasp= 28 lbs 2 point pinch = 4 lbs , 3 jaw radha= 4 lbs and lateral lean six sigma senior specialist = 5 lbs 05/20/2024 gross grasp =30 lbs. 2 point pinch= 4 lbs 3 jaw radha =5 lbs and lateral pinch =9 lbs 06/25/2024 gross grasp = 20 lbs 2 point pinch = 2 3 jaw radha = 1 lbs and lateral pinch =1 lbs <enter goal here> General Yes Haylie Parikh, OTR/L work re entry General Worsening( 8:42 AM EST) No Haylie Parikh, OTR/L Note: Patient will be able to use a his right hand to draw on I pad ; for limited time . 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 and painter sign maintenance's tools Progressing; able to use thick handled brush for short periods of time 06/25/2024 Patient has been regressing after undergoing nerve blocks at pain clinic He has not been integrating his thumb during functional tasks ( keeps thumb against his index) 05/20/2024 Patient Slowly progressing; demo holding and using marker with right hand with interruptions ( 2nd to pain ) Insurance GENERIC GENERIC GENERIC Care Teams Ticket Collector Or Usher Relationship Specialty Start Date End Date Grupo Broderick MD [address] [place] [id number] PCP - General Internal Medicine 08/12/24
--- OUTSIDE RECORDS SUMMARY | 2025-01-22 08:12 | XMS_ITS | Encounter Summary ---
Author Organization [employer] Address [address] [facility] [address] [place] [address] Care Team Providers Care Restoration Technician Name Role Phone Grupo Broderick MD Primary Care Provider [phone] Encounter Details Date Type Department Care Team ([facility] Contact Info) Description 10/22/2024 Orders Only [facility] [address] [place] [address] ProviderDina MD Social History Tobacco Use Types Packs/Day Years Used Date Smoking Tobacco: Every Day Cigars Smokeless Tobacco: Never Depression Answer Date Recorded Patient Health Questionnaire-9 Score 19 06/25/2024 Patient Health Questionnaire-9 Score 19 06/25/2024 Last PHQ-9: Questionnaire Data Not on file 0 06/25/2024 Housing Stability Answer Date Recorded What is your housing situation today? I have rosalee benitez 06/25/[address] you li ve. Do you have problems with any of the following? None of the above 06/25/2024 Food Insecurity Answer Date Recorded Within the past 12 months, y ou worried that your food would run out before you got money to buy more: Never True 2024 Within the past 12 months,th e food you bought just didn't last and you didn't have enough money to get more: Sometimes True 06/25/2024 Transportation Answer Date Recorded In the past 12 months, has l ack of transportation kept you from medical appts, meetings, work or from getting things needed for daily living? No 06/25/2024 Utilities Answer Date Recorded In the past 12 months, has t he electric, gas, oil or water company threatened to shut off services in your home? No 06/25/2024 Depression Answer Date Recorded Patient Health Questionnaire-2 Score 5 06/25/2024 Internet Access Answer Date Recorded Internet Access Q1 Yes 06/25/2024 Internet Access Q2 Not on file 06/25/2024 Sex and Gender Information Value Date Recorded Sex Assigned at Male 03/14/2022 10:19 AM EDT Legal Sex Male 10:19 AM EDT Gender Identity Male 03/14/2022 10:19 AM EDT Sexual Orientation Straight 03/14/2022 10 :19 AM EDT documented as of this encounter Plan of Treatment Not on file documented as of this encounter Procedures Procedure Name Priority Date/Time Associated Diagnosis Comments XR FINGERS 2+ VIEWS BILATERAL Routine 10/21/2024 4:14 PM EDT documented in this encounter Results * XR Fingers 2+ Views Bilateral (10/21/2024 4:14 PM EDT) Anatomical Region Laterality Modality Upper Extremities, Fingers Bilateral [facility] us Historical Provider MD RUIZ XR PROCEDURES Final R esult documented in this encounter Visit Diagnoses Not on filedocumented in this encounter Additional Health Concerns Assessment Noted Time PHQ-9 Depression Total Score: 19 025 11:28 AM EST documented as of this encounter Care Teams Restoration Technician Relationship Specialty Start Date End Date Grupo Broderick MD [address] [place] [id number] PCP - General Internal Medicine 05/15/18 documented as of this encounter
--- OUTSIDE RECORDS SUMMARY | 2025-01-22 08:12 | XMS_ITS | Encounter Summary ---
Author Organization [employer] Address [address] [facility] [address], [place] [address] Care Team Providers Care Senior Writer Name Role Phone Grupo Broderick MD Primary Care Provider [phone] Encounter Details Date Type Department Care Team (Late st Contact Info) Description 05/02/2022 Abstract [facility] [address] [place] [address] Aleisha Zapata, DDS [address] [place] [address] Social History Tobacco Use Types Packs/Day Years Used Date Smoking Tobacco: Never Assessed Sex and Gender Information Value Date Recorded Sex Assigned at Male 03/14/2022 10:19 AM EDT Legal Sex Male 10:19 AM EDT Gender Identity Male 03/14/2022 10:19 AM EDT Sexual Orientation Straight 03/14/2022 10 :19 AM EDT documented as of this encounter Plan of Treatment Not on file documented as of this encounter Visit Diagnoses Not on filedocumented in this encounter Care Teams Senior Writer Relationship Specialty Start Date End Date Grupo Broderick MD [address] [place] [address] PCP - General Internal Medicine 05/15/18 documented as of this encounter
--- OUTSIDE RECORDS SUMMARY | 2025-01-22 08:12 | XMS_ITS | Clinical Summary ---
Author Organization [employer] Address [address] [facility] [address] [place] [address] Care Team Providers Care Railroad Surveyor Name Role Phone Grupo Broderick MD Primary Care Provider [phone] Allergies Active Allergy Reactions Criticality Noted Date Comments Dog Epithelium 03/10/2023 Other reaction(s): HIVES Shellfish Allergy 03/10/2023 Other reaction(s): ANAPHYLAXIS ANAPHYLAXIS Medications * This document contains information received from the source organization and may not represent a complete record from that organization. pregabalin (Lyrica) 75 MG capsule Take 75 mg by mouth 2 times daily. Active sertraline (Zoloft) 50 MG tablet Take 50 mg by mouth. 12/02/2021 Active nabumetone (Relafen) 500 MG tablet Take 1 tablet (500 mg) by mouth if needed in the morning and at bedtime for mild pain or moderate pain. 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 03/10/2023 Headache disorder 03/10/2023 03/10/2023 Mixed anxiety and depressive disorder 03/10/2023 03/10/2023 Encounters Date Type Department Care Team Description 01/06/2025 Telephone [facility] [address] [place] [address] Grupo Broderick MD Durable Medical Equipment 01/02/2025 3:15 PM EDT Office Visit [facility] [address] [place] [address] Grupo Broderick MD Syncope, unspecified syncope type (Primary Dx); LOC (loss of consciousness) ([facility]); Venous insufficiency 01/02/2025 Travel 01/01/2025 Travel 01/01/2025 Telephone [facility] [address] [place] [address] Grupo Broderick MD Chart Prep 11/29/2024 9:40 AM EDT Office Visit [facility] [address] [place] [address] Kellen Mireles MD Palpitations (Primary Dx); Syncope, unspecified syncope type 11/29/2024 Travel 11/28/2024 Telephone [facility] [address] [place] [address] Grupo Broderick MD Referral 11/04/2024 11:20 AM EDT Office Visit [facility] [address] [place] [phone] Hong Quan MD Syncope and collapse (Primary Dx); Acute pain of right shoulder; Right hand pain 11/04/2024 Travel 11/04/2024 Telephone [facility] [address] [place] [address] Grupo Broderick MD Nurse Triage 10/22/2024 Orders Only [facility] [address] [place] [address] Provider, MD Dina from Last 3 Months Immunizations Immunization Administration Dates Next Due Influenza, seasonal, injectable, preservative fr ee 02/29/2024 Pneumococcal Conjugate PCV 20 02/29/2024 TD (adult), 2 Lf tetanus tox oid, preservative free, adsorbed 04/05/2006 Family History Medical History Relation Name Comments Prostate cancer Father Kidney disease Mother Relation Name Status Comments Father Mother Social History Tobacco Use Types Packs/Day Years Used Date Smoking Tobacco: Every Day Cigars Smokeless Tobacco: Never Tobacco Cessation:Ready to Q uit: Not Asked; Counseling Given: Not Answered Depression Answer Date Recorded Patient Health Questionnaire-9 Score 06/25/2024 Patient Health Questionnaire-9 Score 06/25/2024 Last PHQ-9: Questionnaire Data Not on [...] Orientation Straight 03/14/2022 10 :19 AM EDT Last Filed Vital Signs Vital Sign Reading Time Taken Comments Blood Pressure 128/86 01/02/2025 3:17 PM EDT Pulse 117 01/02/2025 3:17 PM EDT Temperature 36.5 C (97.7 F) 01/02/2025 3:17 PM EDT Respiratory Rate 20 01/02/2025 3:17 PM EDT Oxygen Saturation 95% 01/02/2025 3:17 PM EDT Inhaled Oxygen Concentration - - Weight 89.8 kg (198 lb) 01/02/2025 3:17 PM EDT Height 154.3 cm (5' 0.75 ) 11/29/2024 9:43 AM ED T Body Mass Index 37.72 11/29/2024 9:43 AM EDT Plan of Treatment Health Maintenance Due Date Last Done Comments CT Colonography 1977 Colonoscopy 1977 Dental Prophylaxis 1977 FIT 1975 HIV Screening 1975 Sigmoidoscopy 1977 Family Planning (PISQ) 1992 Hepatitis C Screening 1995 Hepatitis B Vaccines (1 of 3 - 19+ 3-dose series) 1996 DTaP/Tdap/Td Vaccines (1 - Tdap) 04/06/2006 04/05/2006 Dental Oral Exam 10/03/2022 04/04/2022 Dental X-Ray: Bitewings 04/05/2023 04/04/20, 03/23/2022 Depression Monitoring 12/23/2024 06/25/2024 , 06/25/2024 COVID-19 Vaccine (1 - 2023-2 5 season) 2025 Influenza Vaccine (#1) 2025 02/29/2024 FOBT 03/08/2025 03/08/2024 Dental X-Ray: Full Mouth 04/05/2025 04/04/2022 Alcohol/Substance Use Screening 06/25/2025 06/25/2024 SDOH Screening 06/25/2025 06/25/2024 Disability Screening 11/29/2025 11/29/2024 Tobacco Screening 11/29/2025 11/29/2024 Colorectal Cancer Screening 03/08/2027 FIT DNA/Cologuard 03/08/2027 03/08/2024 Zoster Vaccines (1 of 2) 2027 Lipid Panel 02/28/2029 02/29/2024, 03/19/2020 RSV Patients and Patients Aged 60 years or older (1 - 1-dose 75+ series) 2052 Pneumococcal Vaccine: Pediatrics (0 to 5 Years) and At-Risk Patients (6 to 49) Years Completed 02/29/2024 HIB Vaccines Aged Out No [...] patient's age to complete this topic Meningococcal Vaccine Aged Out No dominique cheryl eligible based on patient's age to complete this topic RSV under 20 months Aged Out No longe r eligible based on patient's age to complete this topic Rotavirus Vaccines Aged Out No longer eligible based on patient's age to complete this topic Procedures Procedure Name Priority Date/Time Associated Diagnosis Comments CBC WITH AUTO DIFFERENTIAL Routine 11/29/2024 10:19 AM EDT Palpitations COMPREHENSIVE METABOLIC PANEL Routine 11/29/2024 10:14 AM EDT Syncope, unspecified syncope type TSH W/REFLEX TO FT4 Routine 11/29/2024 1 0:14 AM EDT Palpitations ECG 12-LEAD Routine 11/04/2024 11:47 AM EDT Syncope and collapse XR HAND 3+ VIEWS RIGHT Routine 11:29 AM EDT Right hand pain XR SHOULDER 2+ VIEWS RIGHT Routine 11/04/2024 11:16 AM EDT Acute pain of right shoulder LAB COLOGUARD COLON CANCER SCREEN Routine 03/08/2024 9:30 AM EDT Screening for colon cancer LIPID PANEL, STANDARD Routine 02/29/2024 2:27 PM EDT Annual physical exam INTRAORAL - COMPLETE SERIES OF RADIOGRAPHIC IMAGES Routine 04/04/2022 12:00 AM EST COMPREHENSIVE ORAL EVALUATION - NEW OR ESTABLISHED PATIENT Routine 04/04/2022 12:00 AM EST from Last 3 Months or Most Recently Relevant to Health Maintenance Results * (ABNORMAL) CBC auto differential (11/29/2024 10:19 AM EDT) White Blood Count 8.9 4.8 - 10.8 X10*3/uL [facility] Red Blood Count 4.96 4.60 - 5.80 X10*6/uL [facility] Hemoglobin 14.1 14.0 - 18.0 g/dl [facility] Hematocrit 43.1 42.0 - 52.0 % [facility] Mean Corpuscular Volume 86.9 80.0 - 98.0 fL [facility] Mean Corpuscular Hemoglobin 28.4 27.0 - 33.0 pg [facility] Mean Corpuscular HGB Conc 32.7 31.0 - 36.0 g/dl [facility] Red Cell Distribution Width 15.9 11.0 - 16.0 % [facility] Platelet Count 243 160 - 400 X10*3/uL [facility] Mean Platelet Volume 10.3 9.4 - 12.4 fL [facility] Neutrophils Percent Auto 50.2 45 - 73 % [facility] Imm Gran Pct Auto 0.9(H) 0.0 - 0.4 % [facility] Lymphocytes Percent Auto 39.1 20 - 40 % [facility] Monocytes Percent Auto 7.6 2 - 11 % [facility] Eosinophils Percent Auto 1.2 0 - 4 % [facility] Basophils Percent Auto 1.0 0 - 2 % [facility] NRBC Pct Auto 0.0 0.0 - 0.2 /100WBC [facility] Neutrophils Absolute Auto 4.5 2.0 - 8.3 x10*3/uL [facility] Imm Gran Abs Auto 0.08(H) 0.00 - 0.03 X10*3/uL [facility] Lymphocytes Absolute Auto 3.5 1.2 - 4.9 X10*3/uL [facility] Monocytes Absolute Auto 0.7 0.1 - 1.2 X10*3/uL [facility] Eosinophils Absolute Auto 0.1 0.0 - 0.4 X10*3/uL [facility] Basophils Absolute Auto 0.1 0.0 - 0.2 X10*3/uL [facility] NRBC Abs Auto 0.000 0.0 - 0.012 X10*3/uL [facility] Blood Venous blood specimen / Unknown 11/29/2024 10:19 AM EDT 11/29/2024 1:44 PM EDT Kellen Mireles MD LAB BLOOD ORDERABLES Final Resul t Performing Organization Address City/[facility]/ZIP Co de Phone Number [facility] [address] [place] [phone] * TSH W/Reflex to FT4 (11/29/2024 10:14 AM EDT) TSH reflex Free T4 1.03 0.32 - 4.0 uIU/mL [facility] Blood Venous blood specimen / Unknown 11/29/2024 10:14 AM EDT 11/29/2024 1:44 PM EDT Kellen Mireles MD LAB BLOOD ORDERABLES Final Resul t Performing Organization Address [facility] Co de Phone Number [facility] [address] [place] [phone] * (ABNORMAL) Comprehensive Metabolic Panel (11/29/2024 10:14 AM EDT) Sodium 141 135 - 145 mmol/L [facility] Potassium 4.1 3.3 - 5.1 mmol/L [facility] Comment:Slight Hemolysis.Int erpret result with caution. Chloride 110(H) 96 - 108 mmol/L [facility] Carbon Dioxide 24 22 - 29 mmol/L [facility] Anion Gap 11(L) 12 - 20 [facility] Urea Nitrogen (BUN) 13 9 - 16 mg/dL [facility] Creatinine, Serum 0.81 0.5 - 1.4 mg/dL [facility] Estimated Glomerular Filt Rate >60 [facility] Comment:Chronic Kidney Disea se: Estimated GFR < 60 mL/min/1.09c0Nffbzz Kidney Disease: Estimated GFR < 15 mL/min/1.73m2 Glucose 72 60 - 115 mg/dL [facility] Calcium 8.8 8.4 - 10.2 mg/dL [facility] Bilirubin, Total 0.3 0.0 - 1.0 mg/dL [facility] Aspartate Amino Transferase 25 5 - 37 U/L [facility] Comment:Slight Hemolysis.Int erpret result with caution. Alanine Aminotransferase 27 0 - 40 U/L [facility] Total Protein 7.0 6.5 - 8.0 g/dL [facility] Albumin Level 4.4 3.5 - 5.0 g/dL [facility] Alkaline Phosphatase 138(H) 39 - 117 U/L [facility] Blood Venous blood specimen / Unknown 11/29/2024 10:14 AM EDT 11/29/2024 1:44 PM EDT us Kellen Mireles MD LAB BLOOD ORDERABLES Final Resul t [facility] [address] [place] [phone] [phone] * ECG 12 lead (11/04/2024 11:47 AM EDT) Narrative Name, MD Hong - 11/04/2024 11:47 AM EDT Sinus tachycardia, heart rate of 105, nonspecific ST-T changes. Lead II is not visible on the EKG us Hong Quan MD ECG ORDERABLES Final Result * XR Hand 3+ Views Right (11/04/2024 11:29 AM EDT) Anatomical Region Laterality Modality Upper Extremities, Hand Right Radiogra phic Imaging 11/04/2024 11:2 9 AM EDT Narrative 11/04/2024 1:32 PM EDT [facility] [address] [place] [address] XRay Report Signed Patient: Abiel Valentine MR#: [id number] : 1975 Acct:[id number] Age/Sex: 49 / M ADM Date: 11/04/24 Loc: .HHX Attending Dr: Hong Quan MD Ordering Physician: Hong Quan MD Date of Service: 11/04/24 Procedure(s): XR hand RT min 3V Accession Number(s): [id number] cc: Hong Quan MD EXAMINATION: XR HAND, RIGHT CLINICAL INFORMATION: Right hand pain after a fall last week COMPARISON: None available. TECHNIQUE: PA, lateral, and oblique views of the right hand. FINDINGS: No fracture or acute deformity is identified. There are no erosions or osteophytes. Scapholunate interval is at the upper limits of normal. XR/XR hand RT min 3V IMPRESSION: No acute bony abnormality. Electronically signed by: Lio Alfaro MD 11/04/2024 01:28 PM EDT RP Dictated By: Lio Alfaro MD Signed By: <Electronically signed by Lio Alfaro MD in OV> 11/04/24 1328 DD/ 1129 TD/TT: 11/04/24 1200 Automobile Accessories Salesperson: Procedure Note Donotuseinterpreter, Image - 11/04/2024 [place] [address] XRay Report Signed Patient: Jazzmine Valentine#: [id number] : 1975Acct:[id number] Age/Sex: 49 / MADM Date: 11/04/24 Loc: HO.HHCX Attending Dr: Hong Quan MD Ordering Physician: Hong Quan MD Date of Service: 11/04/24 Procedure(s): XR hand RT min 3V Accession Number(s): [id number] cc: Hong Quan MD EXAMINATION: XR HAND, RIGHT CLINICAL INFORMATION: Right hand pain after a fall last week COMPARISON: None available. TECHNIQUE: PA, lateral, and oblique views of the right hand. FINDINGS: No fracture or acute deformity is identified. There are no erosions or osteophytes. Scapholunate interval is at the upper limits of normal. XR/XR hand RT min 3V IMPRESSION: No acute bony abnormality. Electronically signed by: Lio Alfaro MD 11/04/2024 01:28 PM EDT RP Dictated By: Lio Alfaro MD Signed By: <Electronically signed by Lio Alfaro MD in OV> 11/04/24 1328 DD/ 1129 TD/TT: 11/04/24 1200 [employer] Access[employer] Salesperson: Hong Quan MD IM XR PROCEDURES Final Result * XR Shoulder 2+ Views Right (11/04/2024 11:16 AM EDT) Anatomical Region Laterality Modality Upper Extremities, Shoulder Right Radi ographic Imaging 11/04/2024 11:1 6 AM EDT Narrative 11/04/2024 1:32 PM EDT [address] [address] XRay Report Signed Patient: Abiel Valentine MR#: [id number] : 1975 Acct:[id number] Age/Sex: 49 / M ADM Date: 11/04/24 [facility]: Hong Quan MD Ordering Physician: Hong Quan MD Date of Service: 11/04/24 Procedure(s): XR shoulder RT min 2V Accession Number(s): [id number] cc: Hong Quan MD EXAMINATION: XR SHOULDER, RIGHT CLINICAL INFORMATION: Right shoulder pain after fall last week COMPARISON: None available. TECHNIQUE: AP external rotation, Grashey, scapular Y views of the right shoulder. FINDINGS: AC joint is intact. There is no dislocation. There are no degenerative changes. No fracture is evident. XR/XR shoulder RT min 2V IMPRESSION: Unremarkable right shoulder x-rays Electronically signed by: Lio Alfaro MD 11/04/2024 01:29 PM EDT Dictated By: Lio Alfaro MD Signed By: <Electronically signed by Lio Alfaro MD in OV> 11/04/24 1329 DD/ 1116 TD/TT: 11/04/24 1200 [employer] Accessories Salesperson: Procedure Note Donotuseinterpreter, Image - 11/04/[address] [address] XRay Report Signed Patient: Jazzmine Valentine#: [id number] : 1975Acct:[id number] Age/Sex: 49 / MADM Date: 11/04/24 Loc: HO.[facility]X Attending Dr: Hong Quan MD Ordering Physician: Hong Quan MD Date of Service: 11/04/24 Procedure(s): XR shoulder RT min 2V Accession Number(s): [id number] cc: Hong Quan MD EXAMINATION: XR SHOULDER, RIGHT CLINICAL INFORMATION: Right shoulder pain after fall last week COMPARISON: None available. TECHNIQUE: AP external rotation, Grashey, scapular Y views of the right shoulder. FINDINGS: AC joint is intact. There is no dislocation. There are no degenerative changes. No fracture is evident. XR/XR shoulder RT min 2V IMPRESSION: Unremarkable right shoulder x-rays Electronically signed by: Lio Alfaro MD 11/04/2024 01:29 PM EDT Dictated By: Lio Alfaro MD Signed By: <Electronically signed by Lio Alfaro MD in OV> 11/04/24 1329 DD/ 1116 TD/TT: 11/04/24 1200 [employer] Access[employer] Salesperson: Hong Quan MD IMG XR PROCEDURES Final Result * Cologuard?? colon cancer screening (03/08/2024 9:30 AM EDT) Cologuard Result Negative Negative 03/14/20 24 1:35 PM EDT [facility] (CLIA #:[id number]) Comment: NEGATIVE TEST RESULT. A negative Cologuard result indicates a low likelihood that a colorectal cancer (CRC) or advanced adenoma (adenomatous polyps with more advanced pre-malignant features) is present. The chance that a person with a negative Cologuard test has a colorectal cancer is less than 1 in 1500 (negative predictive value >99.9%) or has an advanced adenoma is less than 5.3% (negative predictive value 94.7%). These data are based on a prospective cross-sectional study of 10,000 individuals at average risk for colorectal cancer who were screened with both Cologuard and colonoscopy. (Evelyn Ring al, N Engl J Med 2014;370(14):6014-4719) The normal value (reference range) for this assay is negative. COLOGUARD RE-SCREENING RECOMMENDATION: Periodic colorectal cancer screening is an important part of preventive healthcare for asymptomatic individuals at average risk for colorectal cancer. Following a negative Cologuard result, the [place] Cancer Society and U.S. Multi-Society Task Force screening guidelines recommend a Cologuard re-screening interval of 3 years. References: [place] [employer] Guideline for Colorectal Cancer Screening: https://www.cancer.org/cancer/cvxeb-yitomf-nqkbrx/bifiyysai-hstfwkvkf-piznkwd/ac s-rec ommendations.html.; Edgar LINDA, Merary CARLTON, Colleen BryantK, Colorectal Cancer Screening: Recommendations for Physicians and Patients from the U.S. Multi-Society Task Force on Colorectal Cancer Screening , Am J Gastroenterology 2017; 112:7329-7610. TEST DESCRIPTION: Composite algorithmic analysis of stool DNA-biomarkers with hemoglobin immunoassay. Quantitative values of individual biomarkers are not reportable and are not associated with individual biomarker result reference ranges. Cologuard is intended for colorectal cancer screening of adults of either sex, 45 years or older, who are at average-risk for colorectal cancer (CRC). Cologuard has been approved for use by the U.S. FDA. The performance of Cologuard was established in a cross sectional study of average-risk adults aged 50-84. Cologuard performance in patients ages 45 to 49 years was estimated by sub-group analysis of near-age groups. Colonoscopies performed for a positive result may find as the most clinically significant lesion: colorectal cancer [4.0%], advanced adenoma (including sessile serrated polyps greater than or equal to 1cm diameter) [20%] or non- advanced adenoma [31%]; or no colorectal neoplasia [45%]. These estimates are derived from a prospective cross-sectional screening study of 10,000 individuals at average risk for colorectal cancer who were screened with both Cologuard and colonoscopy. (Evelyn Howard, N Engl J Med 2014;370(14):6561-3575.) Cologuard may produce a false negative or false positive result (no colorectal cancer or precancerous polyp present at colonoscopy follow up). A negative Cologuard test result does not guarantee the absence of CRC or advanced adenoma (pre-cancer). The current Cologuard screening interval is every 3 years. ([place] Cancer Society and U.S. Multi-Society Task Force). Cologuard performance data in a 10,000 patient pivotal study using colonoscopy as the reference method can be accessed at the following location: www.D1G/results. Additional description of the Cologuard test process, warnings and precautions can be found at www.cologuard.com. Stool specimen (specimen) 03/08/2024 9:30 AM EDT 03/09/2024 12:47 PM EDT us Grupo Broderick MD LAB MOLECULAR DIAGNOSTICS O RDERABLES Final Result [facility] (CLIA #:[id number]) [address] [place] [address], * Lipid Panel, Standard (02/29/2024 2:27 PM EDT) Triglycerides 138 <150 mg/dL [facility] Comment:Desirable Triglyceri de: less than 150 mg/dLBorderline High Triglyceride 150-199 mg/dLHigh Triglyceride: 200-499 mg/dLVery High Triglyceride: greater than or equal to 5OO mg/dL Cholesterol 177 <200 mg/dL [facility] Comment:Desirable Cholestero l: less than 200 mg/dLBorderline High Cholesterol: 200-239 mg/dLHigh Cholesterol: greater than 239 mg/dL LDL Cholesterol Calculated 97 <100 mg/dL [facility] Comment:Desirable LDL: less than 100 mg/dLNear Optimal/Above Optimal LDL: 110- 129 mg/dLBorderline High LDL: 130-159 mg/dLHigh LDL: 160-189 mg/dLVery High LDL: greater than or equal to 190 mg/dL HDL Cholesterol 53 >40 mg/dL [facility] Comment:Desirable HDL: great er than 40 mg/dL Note: This HDL assay may give artificially low results in patients with liver disease. Blood Venous blood specimen / Unknown 02/29/2024 2:27 PM EDT 02/29/2024 5:44 PM EDT Grupo Broderick MD LAB BLOOD ORDERABLES Final Result [facility] [address] [place] [phone] from Last 3 Months or Most Recently Relevant to Health Maintenance Insurance [facility] , [address] [place] [address] DENTAL - [employer] DENT[employer] PPO Care Teams Railroad Surveyor Relationship Specialty Start Date End Date Grupo Broderick MD [address] [place] [phone] PCP - General Internal Medicine 05/15/18
--- OUTSIDE RECORDS SUMMARY | 2025-01-22 08:13 | XMS_ITS | Encounter Summary ---
Author Organization [employer] Address [address] [facility] [address] [place] [address] Care Team Providers Care Kindergarten Tutor Name Role Phone Grupo Broderick MD Primary Care Provider [phone] Encounter Details Date Type Department Care Team ([facility] st Contact Info) Description 07/08/2022 Orders Only [facility] [address] [place] [address] Simi Richards LPN Social History Tobacco Use Types Packs/Day Years [...] Procedure Name Priority Date/Time Associated Diagnosis Comments SARS COV2/INFLUENZA A/B AND RSV RNA QL NAAT Routine 03/10/2023 12:00 AM EDT documented in this encounter Results * SARS-CoV-2 RNA, Influenza A/B, and RSV RNA, Ql NAAT (03/10/2023 12:00 AM EDT) Influenza A PCR NEGATIVE Negative [facility] Influenza B PCR NEGATIVE Negative [facility] Resp Syncy Virus RNA Qual PCR NEGATIVE Negative [facility] SARS COV2 PCR NEGATIVE Negative [facility] Comment:All test results mus t be correlated with clinical findings.Negative results do not preclude SARS-CoV2, influenza Avirus, influenza B virus and/or RSV infectionand should not be used as the sole basis for treatment orother patient management decisions. Negative results must becombined with clinical observations, patient history, andepidemiological information.This test has not been evaluated for monitoring treatment ofinfection.This test has been authorized by the FDA under an EmergencyUse Authorization (EUA) for use by authorized laboratories.Testing performed on the [employer] GeneXpert utilizingreal-time RT-PCR.All SARS CoV2 and positive influenza A/B results arereported to [facility]. 03/10/2023 03/10/2023 Julieta Jackson MD LAB MICROBIOLOGY - GENERAL OR DERABLES Final Result [facility] [address] [place] [address] [phone] documented in this encounter Visit Diagnoses Not on filedocumented in this encounter Care Teams Kindergarten Tutor Relationship Specialty Start Date End Date Grupo Broderick MD [address] [place] [phone] PCP - General Internal Medicine 05/15/18 documented as of this encounter
== END 2025-01-22 09:00 | disposition home or self-care (01) ==
LOC: HO.HSM 07:57
PROVIDERS: PCP Student in an Organized Health Care Education/Training Program; Visit Provider Nurse Practitioner
DX: R40.20 Unspecified coma (principal); R25.1 Tremor, unspecified; G43.109 Migraine with aura, not intractable, without status migrainosus
CPT/HCPCS: 99204

== ENCOUNTER 2025-01-24 08:07 | Outpatient (REF) | payer OTHER, SELFPAY ==
--- OUTSIDE RECORDS SUMMARY | 2025-01-24 08:25 | XMS_ITS | Clinical Summary ---
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) 11/27/2024 Telephone Orthopedic Surgery [facility] [address] [facility] [address] [place] [address] Kym Sykes from Last 3 [...] of Chronic pain disorder Neuromuscular disorder (CMS/ [facility] V24, CMS/[facility]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 Stroke (CMS/[facility] V24, CMS/[facility] V28) TIA over 10yrs ago Seizures (CMS/[facility] V24, CMS/[facility] V28) hx of due to nortryptinine [...] Upcoming Encounters Date Type Department Care Team (Late st Contact Info) Description 01/28/2025 9:30 AM EDT Office Visit Orthopedic Surgery - [place] [address] [facility] [address] [place] [address] Juliette Miranda MD [address] [place] [phone] Health Maintenance Due Date Last Done Comments [...] General Worsening( 8:44 AM EST) Yes Haylie Parikh P, OTR/L Note: Slowly improving Pain / spasms [...] Wrist Ext left = wrist EXT right Senior Staff Specialized Employment strength wrist 3+/5 06/25/2024 Decreased AROM in right wrist EXT/ Flexion = 55 degrees strenght General Worsening( 8:45 AM EST) No Haylie Parikh P, OTR/L Note: Patient will have more than 35 lbs gross grasp in his right hand Patient will have increased 2 point mold forms builder of 10 lbs, 3 jaw radha of 10 lbs, and lateral mold forms builder of 10 lbs, 04/03/2024: grossgrasp = 25 lbs 2 point mold forms builder= 3 lbs, 3 jaw radha = 4 lbs and lateral mold forms builder =5 lbs 05/01/2024 grossgrasp= 28 lbs 2 point pinch = 4 lbs , 3 jaw radha= 4 lbs and lateral mold forms builder = 5 lbs 05/20/2024 gross grasp =30 [...] will be able to use markers and hand painter's tools Progressing; able to use thick [...] ) Insurance GENERIC GENERIC GENERIC Care Teams Day Porter Relationship Specialty Start Date End Date Grupo Broderick MD [address] [place] [phone] PCP - General Internal Medicine 08/12/24
--- OUTSIDE RECORDS SUMMARY | 2025-01-24 08:26 | XMS_ITS | Clinical Summary ---
Author Organization [employer] Address [address] [place] [address] Care Team Providers Care Boating Safety Officer Name Role Phone Grupo Broderick MD Primary Care Provider [phone] Allergies Active Allergy Reactions Criticality Noted Date [...] Type Department Care Team Description 01/06/2025 Telephone [facility] [address] [place] [address] Grupo Broderick MD Durable Medical Equipment 01/02/2025 3:15 PM EDT Office Visit [facility] [address] [place] [address] Grupo Broderick MD Syncope, unspecified syncope type (Primary Dx); LOC (loss of consciousness) ([facility]); Venous insufficiency 01/02/2025 Travel 01/01/2025 Travel 01/01/2025 Telephone [facility] [address] [place] [address] Grupo Broderick MD Chart Prep 11/29/2024 9:40 AM EDT Office Visit [facility] [address] [place] [address] Kellen Mireles MD Palpitations (Primary Dx); Syncope, unspecified syncope type 11/29/2024 Travel 11/28/2024 Telephone [facility] [address] [place] [address] Grupo rBoderick MD Referral 11/04/2024 11:20 AM EDT Office Visit [facility] [address] [place] [address] Hong Quan MD Syncope and collapse (Primary Dx); Acute pain of right shoulder; Right hand pain 11/04/2024 Travel 11/04/2024 Telephone [facility] [address] [place] [address] Grupo Broderick MD Nurse Triage from Last 3 Months Immunizations Immunization Administration [...] Blood Count 8.9 4.8 - 10.8 X10*3/uL [facility] Red Blood Count 4.96 4.60 - 5.80 X10*6/uL [facility] Hemoglobin 14.1 14.0 - 18.0 g/dl [facility] Hematocrit 43.1 42.0 - 52.0 % [facility] Mean Corpuscular Volume 86.9 80.0 - 98.0 fL [facility] Mean Corpuscular Hemoglobin 28.4 27.0 - 33.0 pg [facility] Mean Corpuscular HGB Conc 32.7 31.0 - 36.0 g/dl [facility] Red Cell Distribution Width 15.9 11.0 - 16.0 % [facility] Platelet Count 243 160 - 400 X10*3/uL [facility] Mean Platelet Volume 10.3 9.4 - 12.4 fL [facility] Neutrophils Percent Auto 50.2 45 - 73 % [facility] Imm Gran Pct Auto 0.9(H) 0.0 - 0.4 % [facility] Lymphocytes Percent Auto 39.1 20 - 40 % [facility] Monocytes Percent Auto 7.6 2 - 11 % [facility] Eosinophils Percent Auto 1.2 0 - 4 % [facility] Basophils Percent Auto 1.0 0 - 2 % [facility] NRBC Pct Auto 0.0 0.0 - 0.2 /100WBC [facility] Neutrophils Absolute Auto 4.5 2.0 - 8.3 x10*3/uL [facility] Imm Gran Abs Auto 0.08(H) 0.00 - 0.03 X10*3/uL [facility] Lymphocytes Absolute Auto 3.5 1.2 - 4.9 X10*3/uL [facility] Monocytes Absolute Auto 0.7 0.1 - 1.2 X10*3/uL [facility] Eosinophils Absolute Auto 0.1 0.0 - 0.4 X10*3/uL [facility] Basophils Absolute Auto 0.1 0.0 - 0.2 X10*3/uL [facility] NRBC Abs Auto 0.000 0.0 - 0.012 X10*3/uL [facility] Blood Venous blood specimen / Unknown 11/29/2024 10:19 AM EDT 11/29/2024 1:44 PM EDT us Kellen Mireles MD LAB BLOOD ORDERABLES Final Resul t [facility] [address] [place] [address] [phone] * TSH W/Reflex to FT4 (11/29/2024 10:14 AM EDT) TSH reflex Free T4 1.03 0.32 - 4.0 uIU/mL [facility] Blood Venous blood specimen / Unknown 11/29/2024 10:14 AM EDT 11/29/2024 1:44 PM EDT us Kellen Mireles MD LAB BLOOD ORDERABLES Final Resul t Performing Organization Address [facility] Co de Phone Number [facility] [address] [place] [phone] * (ABNORMAL) Comprehensive Metabolic Panel (11/29/2024 10:14 AM EDT) Sodium 141 135 - 145 mmol/L [facility] Potassium 4.1 3.3 - 5.1 mmol/L [facility] Comment:Slight Hemolysis.Int erpret result with caution. Chloride 110(H) 96 - 108 mmol/L [facility] Carbon Dioxide 24 22 - 29 mmol/L [facility] Anion Gap 11(L) 12 - 20 [facility] Urea Nitrogen (BUN) 13 9 - 16 mg/dL [facility] Creatinine, Serum 0.81 0.5 - 1.4 mg/dL [facility] Estimated Glomerular Filt Rate >60 [facility] Comment:Chronic Kidney Disea se: Estimated GFR < 60 mL/min/1.43k7Nauzdr Kidney Disease: Estimated GFR < 15 mL/min/1.73m2 Glucose 72 60 - 115 mg/dL [facility] Calcium 8.8 8.4 - 10.2 mg/dL [facility] Bilirubin, Total 0.3 0.0 - 1.0 mg/dL [facility] Aspartate Amino Transferase 25 5 - 37 U/L [facility] Comment:Slight Hemolysis.Int erpret result with caution. Alanine Aminotransferase 27 0 - 40 U/L [facility] Total Protein 7.0 6.5 - 8.0 g/dL [facility] Albumin Level 4.4 3.5 - 5.0 g/dL [facility] Alkaline Phosphatase 138(H) 39 - 117 U/L [facility] Blood Venous blood specimen / Unknown 11/29/2024 10:14 AM EDT 11/29/2024 1:44 PM EDT us Kellen Mireles MD LAB BLOOD ORDERABLES Final Resul t [facility] [address] [place] [phone] * ECG 12 lead (11/04/2024 11:47 AM EDT) Narrative NameHong MD - 11/04/2024 11:47 AM EDT Sinus tachycardia, heart rate of 105, nonspecific ST-T changes. Lead II is not visible on the EKG us Hong Quan MD ECG ORDERABLES Final Result * XR Hand 3+ Views Right (11/04/2024 11:29 AM EDT) Anatomical Region Laterality Modality Upper Extremities, Hand Right Radiogra phic Imaging 11/04/2024 11:2 9 AM EDT Narrative 11/04/2024 1:32 PM EDT [address] [address] XRay Report Signed Patient: Abiel Valentine MR#: [id number] : 1975 Acct:[id number] Age/Sex: 49 / M ADM Date: 11/04/24 Loc: .HHCX Attending Dr: Hong Quan MD Ordering Physician: Hong Quan MD Date of Service: 11/04/24 Procedure(s): XR hand RT min 3V Accession Number(s): [id number] cc: Hong Quan MD EXAMINATION: XR HAND, [...] 11/04/24 1328 DD/ 1129 TD/TT: 11/04/24 1200 [employer] Special Products Manager: Procedure Note Donotuseinterpreter, Image - 11/04/2024 [place] [address] XRay Report Signed Patient: Jazzmine Valentine#: [id number] : 1975Acct:[id number] Age/Sex: 49 / MADM Date: 11/04/24 Loc: HO.HHCX Attending Dr: Hong Quan MD Ordering Physician: Hong Quan MD Date of Service: 11/04/24 Procedure(s): XR hand RT min 3V Accession Number(s): [id number] cc: Hong Quan MD EXAMINATION: XR HAND, [...] 11/04/24 1328 DD/ 1129 TD/TT: 11/04/24 1200 Catal[employer] And Special Products Manager: Hong Quan MD IM XR PROCEDURES Final Result * XR Shoulder 2+ Views Right (11/04/2024 11:16 AM EDT) Anatomical Region Laterality Modality Upper Extremities, Shoulder Right Radi ographic Imaging 11/04/2024 11:1 6 AM EDT Narrative 11/04/2024 1:32 PM EDT [address] [address] XRay Report Signed Patient: Abiel Valentine MR#: [id number] : 1975 Acct:[id number] Age/Sex: 49 / M ADM Date: 11/04/24 Loc: HO.HHCX Attending Dr: Hong Quan MD Ordering Physician: Hong Quan MD Date of Service: 11/04/24 Procedure(s): XR shoulder RT min 2V Accession Number(s): [id number] cc: Hong Quan MD EXAMINATION: XR SHOULDER, [...] 11/04/24 1329 DD/ 1116 TD/TT: 11/04/24 1200 Catal[employer] And Special Products Manager: Procedure Note Donotkatiinterpreter, Image - 11/04/[address] [address] XRay Report Signed Patient: Philip ValentineR#: [id number] : 1975Acct:[id number] Age/Sex: 49 / MADM Date: 11/04/24 Loc: HO.HHCX Attending Dr: Hong Quan MD Ordering Physician: Hong Quan MD Date of Service: 11/04/24 Procedure(s): XR shoulder RT min 2V Accession Number(s): [id number] cc: Hong Quan MD EXAMINATION: XR SHOULDER, [...] Lio Alfaro MD 11/04/2024 01:29 PM EDT RP Workstation: [employer] Dictated By: Lio Alfaro MD Signed By: <Electronically signed by Lio Alfaro MD in OV> 11/04/24 1329 DD/ 1116 TD/TT: 11/04/24 1200 [employer] And Special Products Manager: Hong Quan MD IM XR PROCEDURES Final Result * Cologuard?? colon cancer screening (03/08/2024 9:30 AM EDT) Cologuard Result Negative Negative 03/14/20 24 1:35 PM EDT [facility] (CLIA #:[id number]) Comment: NEGATIVE TEST RESULT. A negative Cologuard [...] (Evelyn Ring al, N Engl J Med 2014;370(14):8315-2484) The normal value (reference range) for this assay is negative. COLOGUARD RE-SCREENING RECOMMENDATION: Periodic colorectal cancer screening is an important part of preventive healthcare for asymptomatic individuals at average risk for colorectal cancer. Following a negative Cologuard result, the [place] Cancer Society and U.S. Multi-Society Task Force screening guidelines recommend a Cologuard re-screening interval of 3 years. References: [place] [employer] Guideline for Colorectal Cancer Screening: https://www.cancer.org/cancer/vgdni-xpyudj-vhqscs/ccqojfivi-iprazhatv-rulbbff/ac s-rec ommendations.html.; Edgar DK, Merary CR, Colleen BryantK, Colorectal Cancer Screening: Recommendations for Physicians and Patients from the U.S. Multi-Society Task Force on Colorectal Cancer Screening , Am J Gastroenterology 2017; 112:6535-3065. TEST DESCRIPTION: Composite algorithmic analysis of stool [...] (Evelyn Ring al, N Engl J Med 2014;370(14):8176-3719.) Cologuard may produce a false negative or false positive result (no colorectal cancer or precancerous polyp present at colonoscopy follow up). A negative Cologuard test result does not guarantee the absence of CRC or advanced adenoma (pre-cancer). The current Cologuard screening interval is every 3 years. ([place] [employer] Society and U.S. Multi-Society Task Force). Cologuard performance data in a 10,000 patient pivotal study using colonoscopy as the reference method can be accessed at the following location: www.[facility].com/results. Additional description of the Cologuard test process, warnings and precautions can be found at www.[employer].com. Stool specimen (specimen) 03/08/2024 9:30 AM EDT 03/09/2024 12:47 PM EDT us Grupo Broderick MD LAB MOLECULAR DIAGNOSTICS O RDERABLES Final Result [facility] (CLIA #:[id number]) [address] [place] [address], * Lipid Panel, Standard (02/29/2024 2:27 PM EDT) Triglycerides 138 <150 mg/dL [facility] Comment:Desirable Triglyceri de: less than 150 mg/dLBorderline High Triglyceride 150-199 mg/dLHigh Triglyceride: 200-499 mg/dLVery High Triglyceride: greater than or equal to 5OO mg/dL Cholesterol 177 <200 mg/dL [facility] Comment:Desirable Cholestero l: less than 200 mg/dLBorderline High Cholesterol: 200-239 mg/dLHigh Cholesterol: greater than 239 mg/dL LDL Cholesterol Calculated 97 <100 mg/dL [facility] Comment:Desirable LDL: less than 100 mg/dLNear Optimal/Above Optimal LDL: 110- 129 mg/dLBorderline High LDL: 130-159 mg/dLHigh LDL: 160-189 mg/dLVery High LDL: greater than or equal to 190 mg/dL HDL Cholesterol 53 >40 mg/dL [facility] Comment:Desirable HDL: great er than 40 mg/dL Note: This HDL assay may give artificially low results in patients with liver disease. Blood Venous blood specimen / Unknown 02/29/2024 2:27 PM EDT 02/29/2024 5:44 PM EDT Grupo Broderick MD LAB BLOOD ORDERABLES Final Result [facility] [address] [place] [address] [phone] from Last 3 Months or Most Recently Relevant to Health Maintenance Insurance [facility] , [address] [place] [address] DENTAL - [employer] DENT[employer] PPO Care Teams Boating Safety Officer Relationship Specialty Start Date End Date Grupo Broderick MD [address] [place] [phone] PCP - General Internal Medicine 05/15/18
--- OUTSIDE RECORDS SUMMARY | 2025-01-24 08:26 | XMS_ITS | Encounter Summary ---
Author Organization [employer] Address [address] [facility] 7t [place] [address] Care Team Providers Care Intake Specialist Name Role Phone Grupo Broderick MD Primary Care Provider [phone] Encounter Details Date Type Department Care Team ([facility] st Contact Info) Description 07/08/2022 Orders Only [facility] [address] [place] [address] Simi Richards LPN Social History Tobacco Use [...] AM EDT) Influenza A PCR NEGATIVE Negative [facility] Influenza B PCR NEGATIVE Negative [facility] Resp Syncy Virus RNA Qual PCR NEGATIVE Negative [facility] SARS COV2 PCR NEGATIVE Negative [facility] Comment:All test results mus t [...] use by authorized laboratories.Testing performed on the [employer] GeneXpert utilizingreal-time RT-PCR.All SARS CoV2 and positive influenza A/B results arereported to [facility]. 03/10/2023 03/10/2023 Julieta Jackson MD LAB MICROBIOLOGY - GENERAL OR DERABLES Final Result [facility] [address] [place] [phone] [phone] documented in this encounter Visit Diagnoses Not on filedocumented in this encounter Care Teams Intake Specialist Relationship Specialty Start Date End Date Grupo Broderick MD [address] [place] [phone] PCP - General Internal Medicine 05/15/18 documented as of this encounter
--- OUTSIDE RECORDS SUMMARY | 2025-01-24 08:26 | XMS_ITS | Encounter Summary ---
Author Organization [employer] Address [address] [facility] [address], [place] [address] Care Team Providers Care Dispatcher Maintenance Service Name Role Phone Grupo Broderick MD Primary Care Provider [phone] Encounter Details Date Type Department Care Team (Late st Contact Info) Description 05/02/2022 Abstract [facility] [address] [place] [address] Aleisha Zapata, DDS [address] [place] [address] Social History Tobacco Use Types Packs/Day Years [...] on filedocumented in this encounter Care Teams Dispatcher Maintenance Service Relationship Specialty Start Date End Date Grupo Broderick MD [address] [place] [address] PCP - General Internal Medicine 05/15/18 documented as of this encounter
--- OUTSIDE RECORDS SUMMARY | 2025-01-24 08:26 | XMS_ITS | Encounter Summary ---
Author Organization [employer] Address [address] [facility] 7t [place] [address] Care Team Providers Care Attic Fans Mechanic Name Role Phone Grupo Broderick MD Primary Care Provider [phone] Encounter Details Date Type Department Care Team ([facility] Contact Info) Description 10/22/2024 Orders Only [facility] [address] [place] [address] ProviderDina MD Social History Tobacco Use Types [...] documented as of this encounter Care Teams Attic Fans Mechanic Relationship Specialty Start Date End Date Grupo Broderick MD [address] [place] [phone] PCP - General Internal Medicine 05/15/18 documented as of this encounter
--- NOTE | 2025-01-24 09:41 | EEG_ITS ---
Room performed: 402 Reason: syncope Medications: unknown History: syncope - Patient reports episodes of visual and auditory changes which is followed by loss of consciousness. Patient notes that when he 'comes to' he is shaking all over. Episodes started about 4 months ago and happen daily, last one being this morning. Casino Runner Comments Photic Stimulation: completed Hyperventilation: omitted Behavioral state: pleasant State of consciousness: awake Skull defect: none Sedation: none Handedness: right handed Duration of study: 32 mins 18 secs Description: This is a 16 channel EEG with an EKG lead. Patient is reported awake during the tracing. Background EEG rhythm is about 10 hertz 5-20 microvolt posteriorly and lower amplitude fast anteriorly. Photic stimulation does not produce any significant driving. Hyperventilation is not performed. Cardiac lead does not reveal any significant abnormality. No sharp wave spikes or paroxysmal tendency noted. Impression: Unremarkable EEG. MTDD
== END 2025-01-24 08:08 | disposition home or self-care (01) ==
LOC: HO.NEURO 08:07
PROVIDERS: PCP Internal Medicine; Visit Provider Psychiatry & Neurology Neurology
DX: R40.20 Unspecified coma (principal); R25.1 Tremor, unspecified
CPT/HCPCS: 95819

== ENCOUNTER → 2025-01-24 09:41 | Outpatient (BNV) | payer OTHER, SELFPAY | PROVIDERS: PCP Internal Medicine; Visit Provider Psychiatry & Neurology Neurology | DX: R40.20 Unspecified coma (principal) ==

== ENCOUNTER → 2025-02-04 08:36 | Outpatient (BNV) | payer OTHER, SELFPAY | PROVIDERS: PCP Internal Medicine; Visit Provider Radiology Diagnostic Radiology | DX: R40.20 Unspecified coma (principal) | CPT/HCPCS: 70553 ==

== ENCOUNTER 2025-02-04 08:37 | Outpatient (REF) | payer OTHER, SELFPAY ==
--- NOTE | ~2025-02-04 | MR_ITS ---
CLINICAL HISTORY: R40.20 - Unspecified coma; LOC SHAKING MRI brain without and with intravenous contrast Comparison: None provided Findings: No abnormal diffusion restriction to suggest acute ischemia. No intracranial hemorrhage or extra-axial fluid collection. No intracranial mass, positive mass-effect, midline shift or hydrocephalus. Normal flow void within the intracranial vessels. Postcontrast images demonstrate no abnormal enhancement. Orbits, visualized portions of mastoid air cells and paranasal sinuses clear. Calvarium and superficial soft tissue are unremarkable. Impression: Normal exam. This document has been electronically signed by: Divya Rodriguez MD on 02/05/2025 15:17:25
--- OUTSIDE RECORDS SUMMARY | 2025-02-04 09:41 | XMS_ITS | Encounter Summary ---
Author Organization [employer] Address [address] [facility] [address] [place] [address] Care Team Providers Care Publishing Specialist Name Role Phone Grupo Broderick MD Primary Care Provider [phone] Encounter Details Date Type Department Care Team ([facility] Contact Info) Description 10/22/2024 Orders Only [facility] [address] [place] [address] ProviderDina MD Social History Tobacco Use Types [...] documented as of this encounter Care Teams Publishing Specialist Relationship Specialty Start Date End Date Grupo Broderick MD [address] [place] [phone] PCP - General Internal Medicine 05/15/18 documented as of this encounter
--- OUTSIDE RECORDS SUMMARY | 2025-02-04 09:41 | XMS_ITS | Clinical Summary ---
Author Organization [employer] Address [address] [facility] 7t [place] [address] Care Team Providers Care Director Product Development Name Role Phone Grupo Broderick MD Primary Care Provider [phone] Allergies Active Allergy Reactions Criticality Noted Date [...] Type Department Care Team Description 01/06/2025 Telephone [facility] [address] [place] [address] Grupo Broderick MD Durable Medical Equipment 01/02/2025 3:15 PM EDT Office Visit [facility] [address] [place] [address] Grupo Broderick MD Syncope, unspecified syncope type (Primary Dx); LOC (loss of consciousness) ([facility]); Venous insufficiency 01/02/2025 Travel 01/01/2025 Travel 01/01/2025 Telephone [facility] [address] [place] [address] Grupo Broderick MD Chart Prep 11/29/2024 9:40 AM EDT Office Visit [facility] [address] [place] [address] Kellen Mireles MD Palpitations (Primary Dx); Syncope, unspecified syncope type 11/29/2024 Travel 11/28/2024 Telephone [facility] [address] [place] [address] Grupo Broderick MD Referral 11/04/2024 11:20 AM EDT Office Visit [facility] [address] [place] [address] Hong Quan MD Syncope and collapse (Primary Dx); Acute pain of right shoulder; Right hand pain 11/04/2024 Travel 11/04/2024 Telephone [facility] [address] [place] [address] Grupo Broderick MD Nurse Triage from Last [...] Blood Count 8.9 4.8 - 10.8 X10*3/uL [facility] Red Blood Count 4.96 4.60 - 5.80 X10*6/uL [facility] Hemoglobin 14.1 14.0 - 18.0 g/dl [facility] Hematocrit 43.1 42.0 - 52.0 % [facility] Mean Corpuscular Volume 86.9 80.0 - 98.0 fL [facility] Mean Corpuscular Hemoglobin 28.4 27.0 - 33.0 pg [facility] Mean Corpuscular HGB Conc 32.7 31.0 - 36.0 g/dl [facility] Red Cell Distribution Width 15.9 11.0 - 16.0 % [facility] Platelet Count 243 160 - 400 X10*3/uL [facility] Mean Platelet Volume 10.3 9.4 - 12.4 fL [facility] Neutrophils Percent Auto 50.2 45 - 73 % [facility] Imm Gran Pct Auto 0.9(H) 0.0 - 0.4 % [facility] Lymphocytes Percent Auto 39.1 20 - 40 % [facility] Monocytes Percent Auto 7.6 2 - 11 % [facility] Eosinophils Percent Auto 1.2 0 - 4 % [facility] Basophils Percent Auto 1.0 0 - 2 % [facility] NRBC Pct Auto 0.0 0.0 - 0.2 /100WBC [facility] Neutrophils Absolute Auto 4.5 2.0 - 8.3 x10*3/uL [facility] Imm Gran Abs Auto 0.08(H) 0.00 - 0.03 X10*3/uL [facility] Lymphocytes Absolute Auto 3.5 1.2 - 4.9 X10*3/uL [facility] Monocytes Absolute Auto 0.7 0.1 - 1.2 X10*3/uL [facility] Eosinophils Absolute Auto 0.1 0.0 - 0.4 X10*3/uL [facility] Basophils Absolute Auto 0.1 0.0 - 0.2 X10*3/uL [facility] NRBC Abs Auto 0.000 0.0 - 0.012 X10*3/uL [facility] Blood Venous blood specimen / Unknown 11/29/2024 10:19 AM EDT 11/29/2024 1:44 PM EDT us Kellen Mireles MD LAB BLOOD ORDERABLES Final Resul t [facility] [address] [place] [address] [phone] * TSH W/Reflex to FT4 (11/29/2024 10:14 AM EDT) TSH reflex Free T4 1.03 0.32 - 4.0 uIU/mL [facility] Blood Venous blood specimen / Unknown 11/29/2024 10:14 AM EDT 11/29/2024 1:44 PM EDT us Kellen Mireles MD LAB BLOOD ORDERABLES Final Resul t Performing Organization Address [facility] Co de Phone Number [facility] [address] [place] [phone] * (ABNORMAL) Comprehensive Metabolic Panel (11/29/2024 10:14 AM EDT) Sodium 141 135 - 145 mmol/L [facility] Potassium 4.1 3.3 - 5.1 mmol/L [facility] Comment:Slight Hemolysis.Int erpret result with caution. Chloride 110(H) 96 - 108 mmol/L [facility] Carbon Dioxide 24 22 - 29 mmol/L [facility] Anion Gap 11(L) 12 - 20 [facility] Urea Nitrogen (BUN) 13 9 - 16 mg/dL [facility] Creatinine, Serum 0.81 0.5 - 1.4 mg/dL [facility] Estimated Glomerular Filt Rate >60 [facility] Comment:Chronic Kidney Disea se: Estimated GFR < 60 mL/min/1.37y0Xwyzeo Kidney Disease: Estimated GFR < 15 mL/min/1.73m2 Glucose 72 60 - 115 mg/dL [facility] Calcium 8.8 8.4 - 10.2 mg/dL [facility] Bilirubin, Total 0.3 0.0 - 1.0 mg/dL [facility] Aspartate Amino Transferase 25 5 - 37 U/L [facility] Comment:Slight Hemolysis.Int erpret result with caution. Alanine Aminotransferase 27 0 - 40 U/L [facility] Total Protein 7.0 6.5 - 8.0 g/dL [facility] Albumin Level 4.4 3.5 - 5.0 g/dL [facility] Alkaline Phosphatase 138(H) 39 - 117 U/L [facility] Blood Venous blood specimen / Unknown 11/29/2024 10:14 AM EDT 11/29/2024 1:44 PM EDT us Kellen Mireles MD LAB BLOOD ORDERABLES Final Resul t [facility] [address] [place] [phone] * ECG 12 lead (11/04/2024 11:47 [...] AM EDT Narrative 11/04/2024 1:32 PM EDT [address] [address] XRay Report Signed Patient: Abiel Valentine MR#: [id number] : 1975 Acct:[id number] Age/Sex: 49 / M ADM Date: 11/04/24 Loc: .HHCX Attending Dr: Hong Quan MD Ordering Physician: Hong Quan MD Date of Service: 11/04/24 Procedure(s): XR hand RT min 3V Accession Number(s): [id number] cc: Hong Quan MD EXAMINATION: XR HAND, [...] 11/04/24 1328 DD/ 1129 TD/TT: 11/04/24 1200 Dispatcher Refinery: Procedure Note Donotuseinterpreter, Image - 11/04/2024 [place] [address] XRay Report Signed Patient: Jazzmine Valentine#: [id number] : 1975Acct:[id number] Age/Sex: 49 / MADM Date: 11/04/24 Loc: HO.HHCX Attending Dr: Hong Quan MD Ordering Physician: Hong Quan MD Date of Service: 11/04/24 Procedure(s): XR hand RT min 3V Accession Number(s): [id number] cc: Hong Quan MD EXAMINATION: XR HAND, [...] 11/04/24 1328 DD/ 1129 TD/TT: 11/04/24 1200 Dispatcher Refinery: Hong Quan MD IM XR PROCEDURES Final Result * XR Shoulder 2+ Views Right (11/04/2024 11:16 AM EDT) Anatomical Region Laterality Modality Upper Extremities, Shoulder Right Radi ographic Imaging 11/04/2024 11:1 6 AM EDT Narrative 11/04/2024 1:32 PM EDT [address] [address] XRay Report Signed Patient: Abiel Valentine MR#: [id number] : 1975 Acct:[id number] Age/Sex: 49 / M ADM Date: 11/04/24 Loc: HO.HHCX Attending Dr: Hong Quan MD Ordering Physician: Hong Quan MD Date of Service: 11/04/24 Procedure(s): XR shoulder RT min 2V Accession Number(s): [id number] cc: Hong Quan MD EXAMINATION: XR SHOULDER, [...] 11/04/24 1329 DD/ 1116 TD/TT: 11/04/24 1200 Dispatcher Refinery: Procedure Note Donotkatiinterpreter, Image - 11/04/[address] [address] XRay Report Signed Patient: Philip ValentineR#: [id number] : 1975Acct:[id number] Age/Sex: 49 / MADM Date: 11/04/24 Loc: HO.HHCX Attending Dr: Hong Quan MD Ordering Physician: Hong Quan MD Date of Service: 11/04/24 Procedure(s): XR shoulder RT min 2V Accession Number(s): [id number] cc: Hong Quan MD EXAMINATION: XR SHOULDER, [...] MD 11/04/2024 01:29 PM EDT RP Workstation: [employer] Hat Dictated By: Lio Alfaro MD Signed By: <Electronically signed by Lio Alfaro MD in OV> 11/04/24 1329 DD/ 1116 TD/TT: 11/04/24 1200 Dispatcher Refinery: Hong Quan MD IM XR PROCEDURES Final Result * Cologuard?? colon cancer screening (03/08/2024 9:30 AM EDT) Cologuard Result Negative Negative 03/14/20 24 1:35 PM EDT Potential (CLIA #:[id number]) Comment: NEGATIVE TEST RESULT. A negative Cologuard [...] (Evelyn Ring al, N Engl J Med 2014;370(14):3394-6713) The normal value (reference range) for this assay is negative. COLOGUARD RE-SCREENING RECOMMENDATION: Periodic colorectal cancer screening is an important part of preventive healthcare for asymptomatic individuals at average risk for colorectal cancer. Following a negative Cologuard result, the [place] Cancer Society and U.S. Multi-Society Task Force screening guidelines recommend a Cologuard re-screening interval of 3 years. References: [place] Cancer Society Guideline for Colorectal Cancer Screening: https://www.cancer.org/cancer/zevet-gzqxix-iedpvl/zildgdvjc-vgesxligh-qyyidyj/ac s-rec ommendations.html.; Edgar DK, Merary CR, Colleen BryantK, Colorectal Cancer Screening: Recommendations for Physicians and Patients from the U.S. Multi-Society Task Force on Colorectal Cancer Screening , Am J Gastroenterology 2017; 112:4948-9994. TEST DESCRIPTION: Composite algorithmic analysis of stool [...] (Evelyn Ring al, N Engl J Med 2014;370(14):3482-4303.) Cologuard may produce a false negative or false positive result (no colorectal cancer or precancerous polyp present at colonoscopy follow up). A negative Cologuard test result does not guarantee the absence of CRC or advanced adenoma (pre-cancer). The current Cologuard screening interval is every 3 years. ([employer] Cancer Society and U.S. Multi-Society Task Force). Cologuard performance data in a 10,000 patient pivotal study using colonoscopy as the reference method can be accessed at the following location: www.Ziptr.com/results. Additional description of the Cologuard test process, warnings and precautions can be found at www.Didascord.com. Stool specimen (specimen) 03/08/2024 9:30 AM EDT 03/09/2024 12:47 PM EDT us Grupo Broderick MD LAB MOLECULAR DIAGNOSTICS O RDERABLES Final Result Potential (CLIA #:[id number]) [address] [place] [address], * Lipid Panel, Standard (02/29/2024 2:27 PM EDT) Triglycerides 138 <150 mg/dL [facility] Comment:Desirable Triglyceri de: less than 150 mg/dLBorderline High Triglyceride 150-199 mg/dLHigh Triglyceride: 200-499 mg/dLVery High Triglyceride: greater than or equal to 5OO mg/dL Cholesterol 177 <200 mg/dL [facility] Comment:Desirable Cholestero l: less than 200 mg/dLBorderline High Cholesterol: 200-239 mg/dLHigh Cholesterol: greater than 239 mg/dL LDL Cholesterol Calculated 97 <100 mg/dL [facility] Comment:Desirable LDL: less than 100 mg/dLNear Optimal/Above Optimal LDL: 110- 129 mg/dLBorderline High LDL: 130-159 mg/dLHigh LDL: 160-189 mg/dLVery High LDL: greater than or equal to 190 mg/dL HDL Cholesterol 53 >40 mg/dL [facility] Comment:Desirable HDL: great er than 40 mg/dL Note: This HDL assay may give artificially low results in patients with liver disease. Blood Venous blood specimen / Unknown 02/29/2024 2:27 PM EDT 02/29/2024 5:44 PM EDT Grupo Broderick MD LAB BLOOD ORDERABLES Final Result [facility] [address] [place] [address] [phone] from Last 3 Months or Most Recently Relevant to Health Maintenance Insurance [facility] , [address] [place] [address] DENTAL - [employer] D[employer] PPO Care Teams Director Product Development Relationship Specialty Start Date End Date Grupo Broderick MD [address] [place] [phone] PCP - General Internal Medicine 05/15/18
--- OUTSIDE RECORDS SUMMARY | 2025-02-04 09:41 | XMS_ITS | Clinical Summary ---
Author Organization 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) 12/10/2024 9:30 AM EDT Office Visit Orthopedic [facility] [address] [facility] [address] [place] [phone] Juliette Miranda MD 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) 11/27/2024 Telephone Orthopedic [facility] [address] [facility] [address] [place] [address] Kym Sykes from Last 3 [...] hx of Chronic pain disorder Neuromuscular disorder ([facility] V24, [facility]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 Stroke ([facility] V24, [facility] V28) TIA over 10yrs ago Seizures ([facility] V24, [facility] V28) hx of due to [...] EDT Inhaled Oxygen Concentration - - Weight 90.7 kg (200 lb) 01/28/2025 9:15 AM EDT Height 167.6 cm (5' 6 ) 01/28/2025 9:15 AM EDT Body Mass Index 32.28 01/28/2025 9:15 AM EDT Plan of Treatment Upcoming Encounters Date Type Department Care Team (Latest Contact Info) Description 03/13/2025 7:30 AM EDT Hospital Encounter [facility] OR [address] [place] [phone] Juliette Miranda MD [address] [place] [phone] 03/13/2025 7:30 AM EDT - 03/13/2025 11:30 AM EDT Surgery [facility] Main OR [address] [place] [phone] Juliette Miranda MD [address] [place] [phone] ARTHRODESIS of right thumb metacarpal phalangeal joint [36609 (CPT )] 03/18/2025 9:45 AM EST Office Visit Orthopedic Surgery [address] [phone] Juliette Miranda MD [address] [place] [phone] 03/24/2025 1:30 PM EST Office Visit Orthopedic [address] [phone] Anum Marsh PA [address] [place] [phone] Scheduled Procedures Name Priority Associated Diagnoses Date/Ti me ARTHRODESIS FINGER 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 03/13/2025 7:30 AM EDT Health Maintenance Due Date Last Done Comments [...] 03/08/2024 Cholesterol Screening (Lipid Panel) 02/28/2029 02/29/2024 RSV Immunization Adult Patie nts (1 - 1-dose 75+ series) 2052 Pneumococcal Vaccine: Pediat rics (0 to 5 [...] Wrist Ext left = wrist EXT right Rubberizing Mechanic strength wrist 3+/5 06/25/2024 Decreased AROM in right wrist EXT/ Flexion = 55 degrees strenght General Worsening( 8:45 AM EST) No Haylie Parikh P, OTR/L Note: Patient will have more than 35 lbs gross grasp in his right hand Patient will have increased 2 point programming coordinator of 10 lbs, 3 jaw radha of 10 lbs, and lateral programming coordinator of 10 lbs, 04/03/2024: grossgrasp = 25 lbs 2 point programming coordinator= 3 lbs, 3 jaw radha = 4 lbs and lateral programming coordinator =5 lbs 05/01/2024 grossgrasp= 28 lbs 2 point pinch = 4 lbs , 3 jaw radha= 4 lbs and lateral programming coordinator = 5 lbs 05/20/2024 gross grasp =30 [...] will be able to use markers and automobile painter's tools Progressing; able to use thick handled brush for short periods of time 06/25/2024 Patient has been regressing after undergoing nerve blocks at pain clinic He has not been integrating his thumb during functional tasks ( keeps thumb against his index) 05/20/2024 Patient Slowly progressing; demo holding and using marker with right hand with interruptions ( 2nd to pain ) Insurance [facility] [place] [id number] Care Teams Manager Gift Relationship Specialty Start Date End Date Grupo Broderick MD [address] [place] [phone] PCP - General Internal Medicine 08/12/24
--- OUTSIDE RECORDS SUMMARY | 2025-02-04 09:41 | XMS_ITS | Encounter Summary ---
Author Organization [employer] Address [address] [facility] 7[address] [place] [address] Care Team Providers Care Patternmaker Apprentice Wood Name Role Phone Grupo Broderick MD Primary Care Provider [phone] Encounter Details Date Type Department Care Team ([facility] st Contact Info) Description 07/08/2022 Orders Only [facility] [address] [place] [address] Simi Richards LPN Social History Tobacco Use [...] AM EDT) Influenza A PCR NEGATIVE Negative [facility] Influenza B PCR NEGATIVE Negative [facility] Resp Syncy Virus RNA Qual PCR NEGATIVE Negative [facility] SARS COV2 PCR NEGATIVE Negative [facility] Comment:All test results mus t be [...] use by authorized laboratories.Testing performed on the [employer] GeneXpert utilizingreal-time RT-PCR.All SARS CoV2 and positive influenza A/B results arereported to [facility]. 03/10/2023 03/10/2023 Julieta Jackson MD LAB MICROBIOLOGY - GENERAL OR DERABLES Final Result [facility] [address] [place] [phone] [phone] documented in this encounter Visit Diagnoses Not on filedocumented in this encounter Care Teams Patternmaker Apprentice Wood Relationship Specialty Start Date End Date Grupo Broderick MD [address] [place] [phone] PCP - General Internal Medicine 05/15/18 documented as of this encounter
--- OUTSIDE RECORDS SUMMARY | 2025-02-04 09:41 | XMS_ITS | Encounter Summary ---
Author Organization [employer] Address [address] [facility] [address] [address] Care Team Providers Care Heating Element Builder Name Role Phone Grupo Broderick MD Primary Care Provider [phone] Encounter Details Date Type Department Care Team (Late st Contact Info) Description 05/02/2022 [facility] [address] [place] [address] Aleisha Zapata, DDS [address] [place] [address] Social History Tobacco Use Types Packs/Day Years [...] on filedocumented in this encounter Care Teams Heating Element Builder Relationship Specialty Start Date End Date Grupo Broderick MD [address] [place] [address] PCP - General Internal Medicine 05/15/18 documented as of this encounter
== END 2025-02-04 08:38 | disposition home or self-care (01) ==
LOC: HO.MRI 08:37
PROVIDERS: PCP Internal Medicine; Visit Provider Nurse Practitioner
DX: R40.20 Unspecified coma (principal); R25.1 Tremor, unspecified
CPT/HCPCS: 70553; A9585

== ENCOUNTER 2025-03-20 09:04 | Outpatient (AMB) | payer OTHER, SELFPAY ==
--- OUTSIDE RECORDS SUMMARY | 2025-03-18 09:45 | XMS_ITS | Encounter Summary ---
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 Patient is doing what he can. He decided on his own to come off of the Lyrica and Zoloft. He did not like the way it made him feel. He definitely thinks the thumb hurts more but he did not like the other side effects. He continues to have pain around the thumb with it radiating along both sides of the wrist on the arm. He notes the popping like sensation. He really has difficulty with the hand in general and does not have good strength. He has been trying to accommodate by using his left hand PHYSICAL EXAM: Patient at rest continues to have the thumb sitting in a flexed posture with a slight ulnar deviation at the MP level. When he tries to flex the thumb something looks like it jumps but I cannot tell if he is subluxing at the MP joint or if he is got a trigger thumb. He was unable to repeat creativebut wants. In the resting posture the MP joint is at about 40 degrees. He really cannot extend it up to neutral. IP joint he can flex down but only to about 25 degrees. He can gingerly circumduct thethumb but not as wide as he can on his uninvolved left side. He is able to flex and extend the wrist. He can flex and extend the fingers. He continues to have altered sensation along the thumb dorsalaspect. He can feel it but it just does not feel subjectively normal and it is very sensitive and uncomfortable. ASSESSMENT/PLAN: Encounter Diagnosis Name Primary? 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 We did ask for another peer to peer but that was declined. Patient does not know if there is any legal proceedings scheduled yet. We will have him on the schedule for recheck here in the office in 8 weeks and hopefully there willbe some progress made on that front. 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 documented as of this encounter Goals Goal Patient Goal Type Associated Problems [...] General Worsening( 8:51 AM EST) No Haylie Parikh, OTR/L Note: For patient to have less [...] Wrist Ext left = wrist EXT right Tenoner Operator strength wrist 3+/5 06/25/2024 Decreased AROM in right wrist EXT/ Flexion = 55 degrees strenght General Worsening( 8:45 AM EST) No Haylie Parikh, OTR/L Note: Patient will have more than 35 lbs gross grasp in his right hand Patient will have increased 2 point baseball glove shaper of 10 lbs, 3 jaw radha of 10 lbs, and lateral baseball glove shaper of 10 lbs, 04/03/2024: grossgrasp = 25 lbs 2 point baseball glove shaper= 3 lbs, 3 jaw radha = 4 lbs and lateral baseball glove shaper =5 lbs 05/01/2024 grossgrasp= 28 lbs 2 point pinch = 4 lbs , 3 jaw radha= 4 lbs and lateral baseball glove shaper = 5 lbs 05/20/2024 gross grasp =30 [...] will be able to use markers and buildings painter's tools Progressing; able to use thick handled brush for short periods of time 06/25/2024 Patient has been regressing after undergoing nerve blocks at pain clinic He has not been integrating his thumb during functional tasks ( keeps thumb against his index) 05/20/2024 Patient Slowly progressing; demo holding and using marker with right hand with interruptions ( 2nd to pain ) Autogenerated Goal Care Plan Autogenerated Problem No Juliette Miranda MD documented as of this encounter Visit Diagnoses Diagnosis Rupture of ulnar collateral ligament of right thumb, sequela- Primary documented in this encounter Additional Health Concerns Active Problems Noted Date Diagnosed Date Autogenerated Problem 02/12/2025 documented as of this encounter Care Teams Care Management Associate Relationship Specialty Start Date End Date Grupo Broderick MD [address] [place] [address] PCP - General Internal Medicine 08/12/24 documented as of this encounter
--- NOTE | 2025-03-20 09:04 | MHC.OFFVIS ---
Vital Signs 03/20/25 09:11 Height 5 ft 6 in Weight 200 lb BMI 32.3 BP 132/100 H Blood Pressure Location Rt brachial Position Sitting Respiration 16 Pulse 96 Pulse Source Pulse Oximeter Pulse Oximetry (%) 99 Oxygen Delivery Method Room Air Intake Visit Reasons: 2M RESULTS Allergies SEAFOOD Allergy (Unknown, Uncoded 01/22/25 08:01) UNKNOWN seafood and shellfish Adverse Reaction (Severe, Uncoded 01/22/25 08:01) hives, SOB, facial swelling HPI Comments Details: Abiel is a 49-year-old male patient presenting for a follow up visit for syncope. I saw him initially on 01/22/2025 at which time he described episodes of syncope starting after he began on nortriptyline for pain management. These symptoms also included vision changes, hearing loss, and loss of consciousness followed by a tremulousness upon regaining consciousness. He also would noted bilateral headache described as a pressure sensation accompanied by dizziness, light sensitivity, and nausea. He would feel very fatigued and brain fog after events. Despite discontinuing the nortriptyline that was thought to initially triggered these events, his symptoms have persisted over time most commonly occurring in the morning. Loss of bladder, unilateral shaking, or abnormal movements during these episodes. He was not awakening confused or combative and he denied any chest pain or palpitations associated. He did report a history of chronic migraine however his headaches that were accompanying his syncope episodes were distinctly different from his migraines in that they were bilateral where his migraines and typically been unilateral. He did report a history of viral meningitis several years ago which had required hospitalization and quarantine at that time. Prior workups have included an EKG which showed sinus tachycardia and patient had also endorse a relatively frequent elevated heart rate. His exam at time of last visit was normal and I ordered an MRI of the brain with and without contrast as well as an EKG awake and asleep. He was also scheduled to see Cardiology. His routine EEG was performed on 01/24/2025 which was a normal exam His MRI of the brain with and without contrast was performed 02/04/2025 which was a normal exam He is here today for a follow up visit. He tells me today, he continues to have syncopal episodes. Before he was able to sense that these episodes were going to come on with somewhat of a warning sign of tinnitus and loss of hearing. He also had some stars in his vision before onset. He is now having sharp high pitched ringing and then blurred vision and stars. He is experiencing this more rapidly and then he will have a loc. He will find himself slummed over to the side. This is occurring on average 1-2 times per day most often in the morning or in the evening. He weaned himself off of his nebumitone and lyrica to see if his symptoms improved but they have not. He is now in more pain however because of this. He is also having some parenthesis to his jaw area with chewing. [facility] Medical History (Updated 01/22/25 @ 09:07 by Zoila Low CNP) Syncope Assessment & Plan Assessment & Plan (1) Loss of consciousness: Code(s): R40.20 - Unspecified coma Category: Medical (2) Shaking: Code(s): R25.1 - Tremor, unspecified Category: Medical (3) Migraine with aura and without status migrainosus, not intractable: Code(s): G43.109 - Migraine with aura, not intractable, without status migrainosus Category: Medical (4) Encounter to establish care: Code(s): Z76.89 - Persons encountering health services in other specified circumstances (5) Tremor: Code(s): R25.1 - Tremor, unspecified Category: Medical Plan Abiel is a 49-year-old male patient presenting for a follow up visit for syncope with question of possible seizure events. His TSH was normal. MRI and EEG ordered at last visit were nondiagnostic. We will proceed with a 48 hour ambulatory EEG in efforts to capture these events. -48hr AEEG -Keep cardiology appointment -Can resume lyrica 25mg three times daily -Follow-up in 2 months -Future considerations include referral to endocrinology Orders: Orders EEG 48hr Ambulatory Today G43.109 - Migraine with aura, not intractable, without status migrainosus, R25.1 - Tremor, unspecified, R40.20 - Unspecified coma Coding Level of Care Code Est Pt Level 4 (98974) Diagnoses Loss of consciousness R40.20 Shaking R25.1 Migraine with aura and without status migrainosus, not intractable G43.109 Encounter to establish care Z76.89
[2025-03-20 09:11] VITALS: BP 132/100; PULSE 96; RESP 16; O2SAT 99; BMI 32.3
--- OUTSIDE RECORDS SUMMARY | 2025-03-20 09:50 | XMS_ITS | Clinical Summary ---
Author Organization [facility] Address [address] [place] [address] Phone Care Team Providers Care Bleach Supervisor Name Role Phone Grupo Broderick MD Primary Care Provider [phone] Allergies Active Allergy Reactions Criticality Noted Date Comments Dog Epithelium Allergenic Extract 03/10/2023 Other reaction(s): HIVES Shellfish Derived 04/09/2023 Seafood Other Reaction(s): Hives/Urticaria Medications sertraline (ZOLOFT) 50 mg tablet Take 1 [...] Encounters Date Type Department Care Team Description 03/18/2025 9:45 AM EST Office Visit Orthopedic Surgery [facility] 175 [facility] 140 [place] [phone] Juliette Miranda MD Rupture of ulnar collateral ligament of right thumb, sequela (Primary Dx) 03/04/2025 Telephone Orthopedic [facility] [address] [phone] Onel Kym Stacia 02/06/2025 Telephone Orthopedic Surgery [facility] [address] [phone] Juliette Miranda MD 01/28/2025 9:30 AM EDT Office Visit Orthopedic [facility] 175 [facility] 140 [place] [phone] Juliette Miranda MD 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) from Last 3 Months Surgical History Surgery Date Site/Laterality Comments ULNAR COLLATERAL LIGAMENT RECONSTRUCTION repair of rupture OTHER SURGICAL HISTORY ANUS SURGERY ORIF RADIUS & ULNA FRACTURES Medical History Medical History Date Comments Fibromyalgia DX:Fibromyalgia Migraine syndrome DX:Migraine sy ndrome Anxiety state DX:Anxiety state Depressive disorder DX:Depressiv e disorder HL (hearing loss) perforated ear drum L ear Liver disease fatty liver Anemia hx of Chronic pain disorder 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, [facility]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 Stroke ([facility] V24, [facility] V28) TIA over 10yrs ago Seizures ([facility] V24, [facility] V28) hx of due to nortryptinine small shaking of exeremities Joint pain Arthritis Irregular heart beat Social History Tobacco Use Types Packs/Day Years [...] EDT Inhaled Oxygen Concentration - - Weight 95.3 kg (210 lb) 02/11/2025 2:00 PM EDT Height 167.6 cm (5' 6 ) 02/11/2025 2:00 PM EDT Body Mass Index 33.89 02/11/2025 2:00 PM EDT Plan of Treatment Upcoming Encounters Date Type Department Care Team (Late st Contact Info) Description 05/12/2025 9:30 AM EST Office Visit Orthopedic Surgery - [place] 175 [facility] [address] [place] [address] Juliette Miranda MD 175 [facility] [address] [place] [address] Scheduled Procedures Name Priority Associated Diagnoses Date/Ti me ARTHRODESIS FINGER 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 Health Maintenance Due Date Last Done Comments [...] Wrist Ext left = wrist EXT right Garnett Feeder strength wrist 3+/5 06/25/2024 Decreased AROM in right wrist EXT/ Flexion = 55 degrees strenght General Worsening( 8:45 AM EST) No Haylie Parikh, OTR/L Note: Patient will have more than 35 lbs gross grasp in his right hand Patient will have increased 2 point solution engineer of 10 lbs, 3 jaw radha of 10 lbs, and lateral solution engineer of 10 lbs, 04/03/2024: grossgrasp = 25 lbs 2 point solution engineer= 3 lbs, 3 jaw radha = 4 lbs and lateral solution engineer =5 lbs 05/01/2024 grossgrasp= 28 lbs 2 point pinch = 4 lbs , 3 jaw radha= 4 lbs and lateral solution engineer = 5 lbs 05/20/2024 gross grasp =30 [...] will be able to use markers and transportation equipment painter's tools Progressing; able to use thick [...] ) Autogenerated Goal Care Plan Autogenerated Problem Juliette Greene MD Additional Health Concerns Active Problems Noted Date Diagnosed Date Autogenerated Problem 02/12/2025 Insurance GENERIC [facility] GENERIC GENERIC Care Teams Bleach Supervisor Relationship Specialty Start Date End Date Grupo Broderick MD [address] [place] [phone] PCP - General Internal Medicine 08/12/24
--- OUTSIDE RECORDS SUMMARY | 2025-03-20 09:50 | XMS_ITS | Clinical Summary ---
Author Organization [employer] Address [address] [facility] [address] [place] [address] Care Team Providers Care Compensation Expert Name Role Phone Grupo Broderick MD Primary Care Provider [phone] Allergies Active Allergy Reactions Criticality Noted Date [...] Encounters Date Type Department Care Team Description 02/04/2025 Orders Only [facility] External Provider, [facility] 01/06/2025 Telephone [facility] [address] [place], [place] [phone] Grupo Broderick MD Durable Medical Equipment 01/02/2025 3:15 PM EDT Office Visit [facility] [address] [place] [address] Grupo Broderick MD Syncope, unspecified syncope type (Primary Dx); LOC (loss of consciousness) ([facility]); Venous insufficiency 01/02/2025 Travel 01/01/2025 Travel 01/01/2025 Telephone [facility] [address] [place] [address] Grupo Broderick MD Chart Prep from Last 3 Months Immunizations Immunization Administration [...] is your housing situation today? I have rosaleelisa benitez 06/25/[address] you [...] Procedure Name Priority Date/Time Associated Diagnosis Comments MR BRAIN W AND WO CONTRAST Routine 02/05/2025 3:17 PM EDT LAB COLOGUARD COLON CANCER SCREEN Routine 03/08/2024 9:30 AM EDT Screening for colon cancer LIPID PANEL, STANDARD Routine 02/29/2024 2:27 PM EDT Annual physical exam INTRAORAL - COMPLETE SERIES OF RADIOGRAPHIC IMAGES Routine 04/04/2022 12:00 AM EST COMPREHENSIVE ORAL EVALUATION - NEW OR ESTABLISHED PATIENT Routine 04/04/2022 12:00 AM EST from Last 3 Months or Most Recently Relevant to Health Maintenance Results * Mr Brain w/ and w/o Contrast (02/05/2025 3:17 PM EDT) Anatomical Region Laterality Modality Brain Magnetic Resonan ce 02/05/2025 3:17 PM EDT Narrative 02/05/2025 3:18 PM EDT [address] [address] Magnetic Resonance Report Signed Patient: Abiel Valentine MR#: [id number] : 1975 Acct:[id number] Age/Sex: 49 / M ADM Date: 02/04/25 Loc: HO.MRI Attending Dr: Zoila Low CNP Ordering Physician: Zoila Low CNP Date of Service: 02/04/25 Procedure(s): MR head/brain wo/w con Accession Number(s): [id number] cc: Grupo Broderick MD; Zoila Low CNP Reason for Exam: R40.20 - Unspecified coma; LOC SHAKING CLINICAL HISTORY: R40.20 - Unspecified coma; LOC SHAKING MRI brain without and with intravenous contrast Comparison: None provided Findings: No abnormal diffusion restriction to suggest acute ischemia. No intracranial hemorrhage or extra-axial fluid collection. No intracranial mass, positive mass-effect, midline shift or hydrocephalus. Normal flow void within the intracranial vessels. Postcontrast images demonstrate no abnormal enhancement. Orbits, visualized portions of mastoid air cells and paranasal sinuses clear. Calvarium and superficial soft tissue are unremarkable. Impression: Normal exam. This document has been electronically signed by: Divya Rodriguez MD on 02/05/2025 15:17:25 Dictated By: Divya Rodriguez MD Signed By: <Electronically signed by Divya Rodriguez MD in OV> 02/05/25 1517 DD/ 16 TD/TT: 02/05/251516 [facility]: Procedure Note Donotuseinterpreter, Image - 02/05/[address] [address] Magnetic Resonance Report Signed Patient: Jazzmine Valentine#: [id number] : 1975Acct:[id number] Age/Sex: 49 / MADM Date: 02/04/25 Loc: HO.MRI Attending Dr: Zoila Low CNP Ordering Physician: Zoila Low CNP Date of Service: 02/04/25 Procedure(s): MR head/brain wo/w con Accession Number(s): [id number] cc: Grupo Broderick MD; Zoila Low CNP Reason for Exam: R40.20 - Unspecified coma; LOC SHAKING CLINICAL HISTORY: R40.20 - Unspecified coma; LOC SHAKING MRI brain without and with intravenous contrast Comparison: None provided Findings: No abnormal diffusion restriction to suggest acute ischemia. No intracranial hemorrhage or extra-axial fluid collection. No intracranial mass, positive mass-effect, midline shift or hydrocephalus. Normal flow void within the intracranial vessels. Postcontrast images demonstrate no abnormal enhancement. Orbits, visualized portions of mastoid air cells and paranasal sinuses clear. Calvarium and superficial soft tissue are unremarkable. Impression: Normal exam. This document has been electronically signed by: Divya Rodriguez MD on 02/05/2025 15:17:25 Dictated By: Divya Rodriguez MD Signed By: <Electronically signed by Divya Rodriguez MD in OV> 02/05/251516 DD/ 16 TD/TT: 02/05/251516 Faith Healer: [facility] External Provider IM MRI PROCEDURES Final Result * Cologuard?? colon cancer screening (03/08/2024 9:30 AM EDT) Cologuard Result Negative Negative 03/14/20 1:35 PM EDT [facility] (CLIA #:[id number]) Comment: NEGATIVE TEST RESULT. A negative Cologuard [...] (Evelyn Ring al, N Engl J Med 2014;370(14):0827-2889) The normal value (reference range) for this assay is negative. COLOGUARD RE-SCREENING RECOMMENDATION: Periodic colorectal cancer screening is an important part of preventive healthcare for asymptomatic individuals at average risk for colorectal cancer. Following a negative Cologuard result, the [place] Cancer Society and U.S. Multi-Society Task Force screening guidelines recommend a Cologuard re-screening interval of 3 years. References: [place] [employer] Guideline for Colorectal Cancer Screening: https://www.cancer.org/cancer/bwynh-nzciau-jvpogz/gcsutibdt-hhvwasosp-ufiiajt/ac s-rec ommendations.html.; Edgar DK, Merary CARLTON, Colleen BryantK, Colorectal Cancer Screening: Recommendations for Physicians and Patients from the U.S. Multi-Society Task Force on Colorectal Cancer Screening , Am J Gastroenterology 2017; 112:4353-8573. TEST DESCRIPTION: Composite algorithmic analysis of stool [...] (Evelyn Ring al, N Engl J Med 2014;370(14):0186-7175.) Cologuard may produce a false negative or false positive result (no colorectal cancer or precancerous polyp present at colonoscopy follow up). A negative Cologuard test result does not guarantee the absence of CRC or advanced adenoma (pre-cancer). The current Cologuard screening interval is every 3 years. ([place] Cancer Society and U.S. Multi-Society Task Force). Cologuard performance data in a 10,000 patient pivotal study using colonoscopy as the reference method can be accessed at the following location: [email or web address] [email or web address] MD/results. Additional description of the Cologuard test process, warnings and precautions can be found at [email or web address] [email or web address] [email or web address] MD. Stool specimen (specimen) 03/08/2024 9:30 AM EDT 03/09/2024 12:47 PM EDT Grupo Broderick MD LAB MOLECULAR DIAGNOSTICS O RDERABLES Final Result [facility] (CLIA #:[id number]) [address] [place] [address], * Lipid Panel, Standard (02/29/2024 2:27 PM EDT) Triglycerides 138 <150 mg/dL [facility] Comment:Desirable Triglyceri de: less than 150 mg/dLBorderline High Triglyceride 150-199 mg/dLHigh Triglyceride: 200-499 mg/dLVery High Triglyceride: greater than or equal to 5OO mg/dL Cholesterol 177 <200 mg/dL [facility] Comment:Desirable Cholestero l: less than 200 mg/dLBorderline High Cholesterol: 200-239 mg/dLHigh Cholesterol: greater than 239 mg/dL LDL Cholesterol Calculated 97 <100 mg/dL [facility] Comment:Desirable LDL: less than 100 mg/dLNear Optimal/Above Optimal LDL: 110- 129 mg/dLBorderline High LDL: 130-159 mg/dLHigh LDL: 160-189 mg/dLVery High LDL: greater than or equal to 190 mg/dL HDL Cholesterol 53 >40 mg/dL [facility] Comment:Desirable HDL: great er than 40 mg/dL Note: This HDL assay may give artificially low results in patients with liver disease. Blood Venous blood specimen / Unknown 02/29/2024 2:27 PM EDT 02/29/2024 5:44 PM EDT Grupo Broderick MD LAB BLOOD ORDERABLES Final Result [facility] [address] [place] [phone] [phone] from Last 3 Months or Most Recently Relevant to Health Maintenance Insurance [facility] , [address] [place] [address] DENTAL - [employer] DENT[employer] PPO [place] [phone] Care Teams Compensation Expert Relationship Specialty Start Date End Date Grupo Broderick MD [address] [place] [phone] PCP - General Internal Medicine 05/15/18
--- OUTSIDE RECORDS SUMMARY | 2025-03-20 09:50 | XMS_ITS | Encounter Summary ---
Author Organization [employer] Address [address] [facility] [address], [place] [address] Care Team Providers Care Freight Handler Name Role Phone Grupo Broderick MD Primary Care Provider +[phone] Encounter Details Date Type Department Care Team (Late st Contact Info) Description 05/02/2022 Abstract [facility] [address] [place] [address] Aleisha Zapata, DDS [address] [place] [address] Social History Tobacco Use Types Packs/Day Years [...] on filedocumented in this encounter Care Teams Freight Handler Relationship Specialty Start Date End Date Grupo Broderick MD [address] [place] [address] PCP - General Internal Medicine 05/15/18 documented as of this encounter
--- OUTSIDE RECORDS SUMMARY | 2025-03-20 09:50 | XMS_ITS | Encounter Summary ---
Author Organization [employer] Address [address] [facility] [address] [place] [address] Care Team Providers Care History Faculty Member Name Role Phone Grupo Broderick MD Primary Care Provider [phone] Encounter Details Date Type Department Care Team ([facility] Contact Info) Description 10/22/2024 Orders Only [facility] [address] [place] [address] ProviderDina MD Social History Tobacco Use Types [...] documented as of this encounter Care Teams History Faculty Member Relationship Specialty Start Date End Date Grupo Broderick MD [address] [place] [id number] PCP - General Internal Medicine 05/15/18 documented as of this encounter
--- OUTSIDE RECORDS SUMMARY | 2025-03-20 09:50 | XMS_ITS | Encounter Summary ---
Author Organization [employer] Address [address] [facility] [address] [place] [address] Care Team Providers Care Ophthalmic Aide Name Role Phone Grupo Broderick MD Primary Care Provider [phone] Encounter Details Date Type Department Care Team ([facility] st Contact Info) Description 07/08/2022 Orders Only [facility] [address] [place] [address] Simi Richards LPN Social History Tobacco Use [...] AM EDT) Influenza A PCR NEGATIVE Negative [facility] Influenza B PCR NEGATIVE Negative [facility] Resp Syncy Virus RNA Qual PCR NEGATIVE Negative [facility] SARS COV2 PCR NEGATIVE Negative [facility] Comment:All test results mus t [...] use by authorized laboratories.Testing performed on the [employer] GeneXpert utilizingreal-time RT-PCR.All SARS CoV2 and positive influenza A/B results arereported to [facility]. 03/10/2023 03/10/2023 Julieta Jackson MD LAB MICROBIOLOGY - GENERAL OR DERABLES Final Result [facility] [address] [place] [address] [phone] documented in this encounter Visit Diagnoses Not on filedocumented in this encounter Care Teams Ophthalmic Aide Relationship Specialty Start Date End Date Grupo Broderick MD [address] [place] [id number] PCP - General Internal Medicine 05/15/18 documented as of this encounter
== END 2025-03-20 09:42 | disposition home or self-care (01) ==
LOC: HO.HSM 09:04
PROVIDERS: PCP Internal Medicine; Visit Provider Nurse Practitioner
DX: R40.20 Unspecified coma (principal); R25.1 Tremor, unspecified; G43.109 Migraine with aura, not intractable, without status migrainosus; Z76.89 Persons encountering health services in other specified circumstances
CPT/HCPCS: 99214

== ENCOUNTER 2025-04-21 08:07 | Outpatient (REF) | payer OTHER, SELFPAY ==
--- NOTE | 2025-04-21 09:38 | EEG_ITS ---
48 Hour Ambulatory EEG History: Patient described episodes of syncope starting after he began on nortriptyline for pain management. These symptoms also included vision changes, hearing loss, and loss of consciousness followed by a tremulousness upon regaining consciousness. He also would noted bilateral headache described as a pressure sensation accompanied by dizziness, light sensitivity, and nausea. He would feel very fatigued and brain fog after events. Despite discontinuing the nortriptyline that was thought to initially triggered these events, his symptoms have persisted over time most commonly occurring in the morning. Loss of bladder, unilateral shaking, or abnormal movements during these episodes. He was not awakening confused or combative and he denied any chest pain or palpitations associated. He did report a history of chronic migraine however his headaches that were accompanying his syncope episodes were distinctly different from his migraines in that they were bilateral where his migraines and typically been unilateral. His routine EEG was performed on 01/24/2025 which was a normal exam His MRI of the brain with and without contrast was performed 02/04/2025 which was a normal exam Medication: nabumetone, pregabalin Technical description:? Behavioral state: pleasant State of Consciousness: awake and sleep Skull defect: none Sedation: none Handedness: right Duration of study: 48 Hours Diary entries / Symptoms: Day I - Patient reported an episode of dizzy, ringing last 15-20 mins and an episode of headache, ringing and fatigue Day II - Patient reported episodes of lightheadedness, dizzy, auroras lasting 15-20 mins, episode of dizzy and ringing as well as episode of laying down, shortness of breath, tingling and cramping ? Description: This is a 48 hour ambulatory EEG. Patient kept diarrhea of each day and each day of EEG was separately reviewed. It included wakefulness and sleep. Background EEG rhythm during wakefulness was 9-10 hertz symmetric alpha posteriorly lower amplitude fast anteriorly. During both days, patient transitioned into different stages of sleep. Patient had reported episodes of dizziness ringing in headache. During both days, bursts of high-amplitude theta was noted during wakefulness and drowsiness. Rare left frontotemporal sharp waves were noted with phase reversal at T3. No obvious cardiac arrhythmia was noted. Impression: Abnormal ambulatory EEG suggestive of left temporal irritability with suspicion of tendency for partial or complex partial seizures. MTDD
== END 2025-04-21 08:08 | disposition home or self-care (01) ==
LOC: HO.NEURO 08:07
PROVIDERS: PCP Internal Medicine; Visit Provider Nurse Practitioner
DX: G43.109 Migraine with aura, not intractable, without status migrainosus (principal); R25.1 Tremor, unspecified; R40.20 Unspecified coma
CPT/HCPCS: 95700; 95708

== ENCOUNTER → 2025-04-21 09:38 | Outpatient (BNV) | payer OTHER, SELFPAY | PROVIDERS: PCP Internal Medicine; Visit Provider Psychiatry & Neurology Neurology | DX: R25.1 Tremor, unspecified (principal) | CPT/HCPCS: 95721 ==